=== PATIENT | female | born 1965 | race Caucasian/White ===

== ENCOUNTER → 2018-09-07 10:39 | Outpatient (CLI) | payer OTHER, SELFPAY ==
--- NOTE | 2018-09-07 | DI.MG.S_ITS ---
BILATERAL DIGITAL SCREENING MAMMOGRAM 3D/2D WITH CAD: 09/07/2018 CLINICAL: Routine screening. Comparison is made to exams dated: 09/05/2017 mammogram, 09/04/2016 mammogram, and 09/01/2015 mammogram - [facility]. The tissue of both breasts is heterogeneously dense. This may lower the sensitivity of mammography. Current study was also evaluated with a Computer Aided Detection (CAD) system. No significant masses, calcifications, or other findings are seen in either breast. There has been no significant interval change. IMPRESSION: NEGATIVE There is no mammographic evidence of malignancy. A 1 year screening mammogram is recommended. This exam was interpreted at Station ID: [id number]. NOTE: For mammograms, a report in lay terms will be sent to the patient. Approximately 15% of breast malignancies will not be visualized mammographically. In the management of a palpable breast mass, a negative mammogram must not discourage biopsy of a clinically suspicious lesion. Electronically Signed By: Fela esteban/christiana:09/07/2018 13:09:31 copy to: John Arreaga letter sent: Normal Exam ACR BI-RADS Category 1: Negative 3341F
== END ==
PROVIDERS: PCP Student in an Organized Health Care Education/Training Program
DX: Z12.31 Encounter for screening mammogram for malignant neoplasm of breast (principal)
CPT/HCPCS: 77063; 77067

== ENCOUNTER → 2019-01-02 12:34 | Outpatient (CLI) | payer OTHER, SELFPAY ==
--- NOTE | 2019-01-02 12:37 | DI.RAD.S_ITS ---
PROCEDURE: XR LUMBAR SPINE MIN 4V INDICATIONS: Eval TECHNIQUE: 3 views of the lumbar spine were acquired. COMPARISON: [facility], CT, ABDOMEN/PELVIS WITH CONTRAST, 02/21/2008, 10:27. FINDINGS: Bones: 5 nonrib-bearing vertebrae are present. There is mildly dextroscoliotic bony alignment centered at L2. No vertebral body compression fractures. No suspicious bony lesions. Soft tissues: Overlying bowel gas pattern is normal. No suspicious soft tissue calcifications, but note is made of a small radiodensity at the left margin of the upper third of L1 on a straight frontal projection, uncertain etiology but near the expected position of the medial border of the left kidney upper third. Oblique images: No pars defects. IMPRESSION: No trauma found, mild dextroscoliosis centered at L2, no significant degenerative change found. Dictated by: Jose Solorzano M.D. on 01/02/2019 at 13:10 Approved by: Jose Solorzano M.D. on 01/02/2019 at 13:12
== END ==
PROVIDERS: PCP Student in an Organized Health Care Education/Training Program; Visit Provider Physical Medicine & Rehabilitation
DX: M54.9 Dorsalgia, unspecified (principal); M41.86 Other forms of scoliosis, lumbar region
CPT/HCPCS: 72110

== ENCOUNTER → 2019-01-21 09:46 | Outpatient (CLI) | payer OTHER, SELFPAY ==
--- NOTE | 2019-01-21 09:46 | DI.MRI.S_ITS ---
PROCEDURE: MR LUMBAR SPINE WO CON INDICATIONS: Acute LBP with LE symptoms TECHNIQUE: Noncontrast sagittal T1 spin echo and T2 fast echo, sagittal STIR, axial T1 and T2 fast spin echo through the lumbar spine. In cases with scoliosis, additional coronal T2 fast spin echo may be performed. COMPARISON: [facility], CR, XR LUMBAR SPINE MIN 4V, 01/02/2019, 12:39. FINDINGS: Image quality: Excellent. Alignment and Curvature: 5 lumbar type vertebral bodies are present by plain film. There is normal bony alignment. Bone Marrow: Marrow is of normal overall signal. No acute vertebral body compression fractures. Spinal Cord: Conus medullaris terminates at the mid L2 level. Visualized cord demonstrates normal signal and size. Paraspinous Soft Tissues: No paravertebral masses. L1-L2: Mild disc desiccation. Mild diffuse disc bulge with superimposed left paracentral disc extrusion which extends inferiorly to the upper L2 level, and superiorly to the mid L1 level, measuring roughly 18 mm craniocaudal by 9 mm transverse by 4 mm central posterior. There is mild facet and ligamentum flavum hypertrophy. Moderate lipomatosis. Mild canal stenosis. The disc abuts the left L2 nerve root but does not appear to compress it, nor deviate it. No foraminal stenosis. L2-L3: Mild disc loss and desiccation. Mild diffuse disc bulge. Mild facet and ligamentum flavum hypertrophy. Mild epidural lipomatosis. Mild canal stenosis. Mild bilateral foraminal stenosis. L3-L4: Mild disc height loss and desiccation. Mild diffuse disc bulge. Mild facet and ligamentum flavum hypertrophy. Moderate lipomatosis. Moderate canal stenosis. Moderate subarticular foraminal stenosis. L4-L5: Mild disc desiccation and diffuse disc bulge. Mild facet and ligamentum hypertrophy. Mild canal stenosis. Moderate subarticular foraminal stenosis bilaterally. L5-S1: Mild bilateral facet hypertrophy. No significant canal stenosis. Moderate subarticular foraminal stenosis bilaterally. IMPRESSION: 1. Multilevel degenerative disc and facet disease, as well as ligament flavum hypertrophy and epidural lipomatosis. 2. Multilevel canal stenoses, worst at L3-L4, where there is moderate canal stenosis present. 3. L1-L2 disc extrusion which abuts the left L2 nerve root but does not appear to compress it, nor deviate it. Recommend correlation with clinical symptoms to ascertain relevance of this finding. Dictated by: Abdelrahman Lehman M.D. on 01/21/2019 at 10:58 Approved by: Abdelrahman Lehman M.D. on 01/21/2019 at 11:05
== END ==
PROVIDERS: PCP Student in an Organized Health Care Education/Training Program; Visit Provider Physical Medicine & Rehabilitation
DX: M51.16 Intervertebral disc disorders with radiculopathy, lumbar region (principal); S39.012A Strain of muscle, fascia and tendon of lower back, initial encounter; M48.061 Spinal stenosis, lumbar region without neurogenic claudication; M48.07 Spinal stenosis, lumbosacral region
CPT/HCPCS: 72148

== ENCOUNTER → 2019-05-08 10:06 | Outpatient (CLI) | payer OTHER, SELFPAY ==
[2019-05-08 10:12] LABS: Bacteria Urine None Seen; RBC Urine None Seen (0-5/HPF); WBC Urine None Seen (0-5/HPF)
[2019-05-08 10:39] LABS: Appearance Urine UA CLEAR; Bilirubin Urine UA NEGATIVE (NEGATIVE); Color Urine UA YELLOW; Glucose Urine UA NEGATIVE (Negative); Ketones Urine UA NEGATIVE (NEGATIVE); Leukocyte Esterase Urine UA NEGATIVE (NEGATIVE); Nitrite Urine UA NEGATIVE (Negative); Occult Blood Urine UA NEGATIVE (Negative); Protein Urine UA NEGATIVE (Negative); Specific Gravity Urine UA 1.015 (1.000-1.035); Urobilinogen Urine UA 0.2 E.U./dL (0.2)
[2019-05-08 11:20] LABS: Squamous Epithelial Cell Urine 0-1 /HPF (0-5/HPF)
[2019-05-08 13:44] LABS: Culture Indicated Urine Cult Not Indicated
== END ==
PROVIDERS: PCP Student in an Organized Health Care Education/Training Program
DX: R39.9 Unspecified symptoms and signs involving the genitourinary system (principal)
CPT/HCPCS: 81001

== ENCOUNTER → 2019-09-18 16:30 | Outpatient (CLI) | payer OTHER, SELFPAY ==
--- NOTE | 2019-09-18 | DI.MG.S_ITS ---
BILATERAL DIGITAL SCREENING MAMMOGRAM 3D/2D WITH CAD: 09/18/2019 CLINICAL: Routine screening. Comparison is made to exams dated: 09/07/2018 mammogram, 09/05/2017 mammogram, and 09/04/2016 mammogram - [facility]. The tissue of both breasts is heterogeneously dense. This may lower the sensitivity of mammography. Current study was also evaluated with a Computer Aided Detection (CAD) system. No significant masses, calcifications, or other findings are seen in either breast. There has been no significant interval change. IMPRESSION: NEGATIVE There is no mammographic evidence of malignancy. A 1 year screening mammogram is recommended. This exam was interpreted at Station ID: [id number]. NOTE: For mammograms, a report in lay terms will be sent to the patient. Approximately 15% of breast malignancies will not be visualized mammographically. In the management of a palpable breast mass, a negative mammogram must not discourage biopsy of a clinically suspicious lesion. Electronically Signed By: Seda donald/christiana:09/19/2019 10:47:08 copy to: John Arreaga letter sent: Normal Exam ACR BI-RADS Category 1: Negative 3341F
== END ==
PROVIDERS: Family Provider Student in an Organized Health Care Education/Training Program; PCP Student in an Organized Health Care Education/Training Program
DX: Z12.31 Encounter for screening mammogram for malignant neoplasm of breast (principal)
CPT/HCPCS: 77063; 77067

== ENCOUNTER → 2020-04-06 10:04 | Outpatient (CLI) | payer OTHER, SELFPAY | PROVIDERS: Family Provider Student in an Organized Health Care Education/Training Program; PCP Student in an Organized Health Care Education/Training Program | DX: Z13.820 Encounter for screening for osteoporosis (principal); Z78.0 Asymptomatic menopausal state; Z90.722 Acquired absence of ovaries, bilateral; Z91.89 Other specified personal risk factors, not elsewhere classified | CPT/HCPCS: 77080 ==

== ENCOUNTER → 2020-09-21 16:09 | Outpatient (CLI) | payer OTHER, SELFPAY ==
--- NOTE | 2020-09-21 | DI.MG.S_ITS ---
BILATERAL DIGITAL SCREENING MAMMOGRAM 3D/2D WITH CAD: 09/21/2020 CLINICAL: Routine screening. Comparison is made to exams dated: 09/18/2019 mammogram, 09/07/2018 mammogram, and 09/05/2017 mammogram - [facility]. The tissue of both breasts is heterogeneously dense. This may lower the sensitivity of mammography. Current study was also evaluated with a Computer Aided Detection (CAD) system. No significant masses, calcifications, or other findings are seen in either breast. There has been no significant interval change. IMPRESSION: NEGATIVE There is no mammographic evidence of malignancy. A 1 year screening mammogram is recommended. This exam was interpreted at Station ID: [id number]. NOTE: For mammograms, a report in lay terms will be sent to the patient. Approximately 15% of breast malignancies will not be visualized mammographically. In the management of a palpable breast mass, a negative mammogram must not discourage biopsy of a clinically suspicious lesion. Electronically Signed By: Fela esteban/christiana:09/28/2020 11:40:47 letter sent: Normal Exam ACR BI-RADS Category 1: Negative 3341F
== END ==
PROVIDERS: Family Provider Student in an Organized Health Care Education/Training Program; PCP Student in an Organized Health Care Education/Training Program; Referring Provider Obstetrics & Gynecology; Visit Provider Obstetrics & Gynecology
DX: Z12.31 Encounter for screening mammogram for malignant neoplasm of breast (principal)
CPT/HCPCS: 77063; 77067

== ENCOUNTER → 2020-12-18 08:08 | Outpatient (CLI) | payer OTHER, SELFPAY ==
[2020-12-18 08:52] LABS: Add Manual Diff / Slide Review NO; Basophils Absolute Auto 0 /uL (0-100); Basophils Percent Auto 0.7 % (0-2); Eosinophils Absolute Auto 100 /uL (0-450); Eosinophils Percent Auto 3.3 % (2-4); Hematocrit 37.2 % (36-46); Hemoglobin 12.5 g/dL (12.0-16.0); Lymphocytes Absolute Auto 1600 /uL (1100-4500); Lymphocytes Percent Auto 38.4 % (25-40); Mean Corpuscular HGB Conc 33.5 % (30-36); Mean Corpuscular Hemoglobin 33.2 PG (26-34); Mean Corpuscular Volume 99.1 fL (80-100); Monocytes Absolute Auto 400 /uL (0-900); Monocytes Percent Auto 10.1 % (3-14); Neutrophils Absolute Auto 2000 /uL (1500-7000); Neutrophils Percent Auto 47.5 % (50-75); Platelet Count 250 X10^3/uL (150-400); Red Blood Cell Count 3.76 X10^6/uL (4.0-5.2); Red Cell Distribution Width 12.5 % (11.6-14.8); White Blood Cell Count 4.2 X10^3/uL (4.5-11.0)
[2020-12-18 09:05] LABS: Alanine Aminotransferase 22 IU/L (<35); Albumin 3.7 g/dL (3.5-5.0); Albumin Globulin Ratio 1.3 (1.0-2.8); Alkaline Phosphatase 69 U/L (38-126); Aspartate Aminotransferase 26 IU/L (14-36); BUN Creatinine Ratio 14.5 (6-22); Bilirubin Total 0.4 mg/dL (0.2-1.3); Blood Urea Nitrogen 10 mg/dL (7-17); Carbon Dioxide 31 mmol/L (22-32); Chloride 104 mmol/L (98-107); Estimated Glomerular Filt Rate > 60.0 mL/min (>60); Globulin 2.9 g/dL (1.7-4.1); Glucose 96 mg/dL (70-100); HEMOLYSIS < 15 (0-50); Potassium 4.3 mmol/L (3.4-5.1); Sodium 137 mmol/L (137-145); Total Protein 6.6 g/dL (6.3-8.2)
[2020-12-18 09:22] LABS: Free T3, Triiodothyronine Free 3.38 pg/mL (2.77-5.27); Free T4, Direct Thyroxine 1.28 ng/dL (0.78-2.19)
[2020-12-18 09:36] LABS: Thyroid Stimulating Hormone 0.254 uIU/mL (0.47-4.68)
[2020-12-18 09:55] LABS: Vitamin B12 484 pg/mL (239-931)
== END ==
PROVIDERS: Family Provider Student in an Organized Health Care Education/Training Program; PCP Student in an Organized Health Care Education/Training Program; Referring Provider Student in an Organized Health Care Education/Training Program; Visit Provider Student in an Organized Health Care Education/Training Program
DX: R53.83 Other fatigue (principal); E03.9 Hypothyroidism, unspecified
CPT/HCPCS: 36415; 80053; 82607; 84439; 84443; 84481; 85025

== ENCOUNTER → 2021-01-13 09:04 | Outpatient (CLI) | payer OTHER, SELFPAY ==
[2021-01-13] MEDS: COVID-19 VACC #1, MRNA(MOD) 100 MCG/0.5 ML VIAL IM (09:13)
== END ==
PROVIDERS: Family Provider Student in an Organized Health Care Education/Training Program; PCP Student in an Organized Health Care Education/Training Program; Visit Provider Internal Medicine
DX: Z23 Encounter for immunization (principal)
CPT/HCPCS: 0011A; 91301

== ENCOUNTER → 2021-02-10 09:08 | Outpatient (CLI) | payer OTHER, SELFPAY ==
[2021-02-10] MEDS: COVID-19 VACC #2, MRNA(MOD) 100 MCG/0.5 ML VIAL IM (09:17)
== END ==
PROVIDERS: PCP Student in an Organized Health Care Education/Training Program; Visit Provider Internal Medicine
DX: Z23 Encounter for immunization (principal)
CPT/HCPCS: 0012A; 91301

== ENCOUNTER → 2021-09-26 12:09 | Outpatient (CLI) | payer OTHER, SELFPAY ==
--- NOTE | 2021-09-26 12:10 | DI.MG.S_ITS ---
BILATERAL DIGITAL SCREENING MAMMOGRAM 3D/2D WITH CAD: 09/26/2021 CLINICAL: Routine screening. Comparison is made to exams dated: 09/21/2020 mammogram, 09/18/2019 mammogram, and 09/07/2018 mammogram - [facility]. The tissue of both breasts is heterogeneously dense. This may lower the sensitivity of mammography. Current study was also evaluated with a Computer Aided Detection (CAD) system. No significant masses, calcifications, or other findings are seen in either breast. There has been no significant interval change. IMPRESSION: NEGATIVE There is no mammographic evidence of malignancy. A 1 year screening mammogram is recommended. This exam was interpreted at Station ID: [id number]. NOTE: For mammograms, a report in lay terms will be sent to the patient. Approximately 15% of breast malignancies will not be visualized mammographically. In the management of a palpable breast mass, a negative mammogram must not discourage biopsy of a clinically suspicious lesion. Electronically Signed By: Pancho hammond/christiana:09/26/2021 14:31:32 copy to: VICKI WILSON letter sent: Normal Exam ACR BI-RADS Category 1: Negative 3341F
== END ==
PROVIDERS: PCP Student in an Organized Health Care Education/Training Program; Referring Provider Obstetrics & Gynecology; Visit Provider Obstetrics & Gynecology
DX: Z12.31 Encounter for screening mammogram for malignant neoplasm of breast (principal)
CPT/HCPCS: 77063; 77067

== ENCOUNTER → 2021-11-17 07:14 | Outpatient (CLI) | payer OTHER, SELFPAY ==
[2021-11-17 08:56] LABS: BUN Creatinine Ratio 21.1 (6-22); Blood Urea Nitrogen 16 mg/dL (7-17); Calcium 9.2 mg/dL (8.4-10.2); Carbon Dioxide 31 mmol/L (22-32); Chloride 104 mmol/L (98-107); Estimated Glomerular Filt Rate > 60.0 mL/min (>60); Glucose 94 mg/dL (70-100); HEMOLYSIS < 15 (0-50); Potassium 4.8 mmol/L (3.4-5.1); Sodium 139 mmol/L (137-145)
[2021-11-17 09:21] LABS: TSH w/ Reflex to FT4 0.89 uIU/mL (0.47-4.68)
== END ==
PROVIDERS: PCP Student in an Organized Health Care Education/Training Program; Referring Provider Student in an Organized Health Care Education/Training Program; Visit Provider Student in an Organized Health Care Education/Training Program
DX: E03.9 Hypothyroidism, unspecified (principal); Z79.899 Other long term (current) drug therapy
CPT/HCPCS: 36415; 80048; 84443

== ENCOUNTER 2022-02-28 09:45 | Outpatient (RCR) | payer OTHER, SELFPAY ==
--- NOTE | 2021-11-21 14:51 | PT.OIE ---
Current Diagnoses Cervicogenic headache (11/21/21) Past Medical History (Last Reviewed 08/09/21 @ 12:54 by Adarsh Preciado MD) Acute lumbar myofascial strain Anemia History of colonoscopy (~2007) Hypothyroidism Ulcerative colitis (~2010) Past Surgical History (Last Reviewed 08/09/21 @ 12:54 by Adarsh Preciado MD) History of bilateral salpingo-oophorectomy (BSO) History of colonoscopy (~2007) Status post hysterectomy Visit Care Team Role Provider Type Brennon Pike MD Attending Provider Physician Family Provider Primary Care Provider Referring Provider Specialty: Internal Medicine Address: [address] [place] [address], [facility] [address], [place], [facility] Email: [email or web address] Physical Therapy Initial Evaluation PT-OP-A Visit Information Start: 11/18/21 10:51 Freq: Status: Active Protocol: Document 11/21/21 13:48 MB (Rec: 11/21/21 13:50 MB [id number]) Out-Patient Physical Therapy Visit Information Visit Information Visit Type Initial Evaluation Visit Note [facility], Self- Pay Visit Start Time 13:48 Visit Stop Time 14:30 Total Visit Minutes 42 Visit Number 1 Evaluation Information Evaluation Date 11/21/21 PT-OP-B Current Condition Start: 11/18/21 10:51 Freq: Status: Active Protocol: Document 11/21/21 13:48 MB (Rec: 11/21/21 14:05 MB [id number]) Current Condition History of Current Condition Onset Date [age] years Current Complaints Posterior headache pain History of Current Condition Pt states that she has had headaches since her teens. She was told they were migraines when she had her hysterectomy at age 28 years. The headaches did not get better after that . Pt states that her headaches go in cycles. When she gets them, she gets them constantly and then they stop. She does exercise at [employer]. She walks and runs. She changed her diet and she cut out flour. She tried cutting out caffeine and it did not make a change. She went to [facility] for pelvic floor therapy. The therapist did something for her neck and she got relief. Her PT encouraged her to return to her PCP and she got the referral to this clinic. Pt reports 8-9/10 posterior head and neck pain and 7/10 shoulder and 6/10 intrascapular pain. Pt reports that she gets light and noise sensitivity with headaches. She gets dizzy and nauseated. She has some migraine medicines that she takes when she can but she only gets so many. When she can go to bed, that makes a difference. She has tried ice packs. Pt has a BiPap and the doctor says her sleep is good. She tries to go to bed between 10- 1030 and wakes up about 0630. She has a puppy and now her sleeping schedule is off. Pt works part-time and she does retail. Pt starts out on her stomach and winds up on her back. She uses her BiPap in this position. Her mattress is firm. Pt goes to massage once a month. She wishes she could live there. She drinks a lot of water. She drinks 66 oz a day. She drinks 1.5 cup of caffeinated coffee in the morning and 1 cup of coffee in the afternoon. Right now, she is drinking 3 cups with the dog. Pt reports that occ, her eyes feel pressurized and she feels she is strangly. Pt states that her back pain is doing fine. PT-OP-C Subjective Start: 11/18/21 10:51 Freq: Status: Active Protocol: Document 11/21/21 13:48 MB (Rec: 11/21/21 13:50 MB [id number]) OP-PT Subjective Patient Comments Patient Comments See history of current condition PT-OP-J Posture/Palpation/Skin Start: 11/18/21 10:51 Freq: Status: Active Protocol: Document 11/21/21 13:48 MB (Rec: 11/21/21 14:51 MB [id number]) Posture Evaluation Comments Posture Comments Standing posture without shoes : left AC joint is 1 in front of left tragus, left shoulder is about 1 higher than the left and pt is left hand dominant. Mild Dowager's hump and decreased normal curvature of spine at all levels with very flat thoracic spine, right iliac crest higher than the left, B knee valgus and some foot changes PT-OP-K Range of Motion Start: 11/18/21 10:51 Freq: Status: Active Protocol: Document 11/21/21 13:48 MB (Rec: 11/21/21 14:51 MB [id number]) Cervical Spine Range of Motion Cervical Spine Active Testing Position Standing Flexion 20 Extension 23 Rotation Left 40 Rotation Right 50 Lateral Flexion Left 25 Lateral Flexion Right 30 Shoulder Goniometric Range of Motion Shoulder Bilateral Shoulder ROM WFL Yes Testing Position Standing PT-OP-M Strength Start: 11/18/21 10:51 Freq: Status: Active Protocol: Document 11/21/21 13:48 MB (Rec: 11/21/21 14:51 MB [id number]) Shoulder Strength Shoulder Manual Muscle Testing Bilateral Flexion 5 Normal Abduction (C5) 5 Normal Elbow/Forearm Strength Elbow and Forearm Manual Muscle Testing Bilateral Flexion (C6) 5 Normal PT-OP-Q Treatments Start: 11/18/21 10:51 Freq: Status: Active Protocol: Document 11/21/21 13:48 MB (Rec: 11/21/21 14:42 MB [id number]) Self-Care/Home Management Treatment Education Patient Education Body Mechanics,Joint Protection,Pain Management, Posture Other Education Provided sleeping hygiene and headache self-care handouts for pt, ed pt in proper sleeping position for neck support and log roll technique , other education included hydration, etc PT-OP-T Assessment and Plan Start: 11/18/21 10:51 Freq: Status: Active Protocol: Document 11/21/21 13:48 MB (Rec: 11/21/21 14:51 MB [id number]) Physical Therapy Assessment Rehab Potential Rehabilitation Potential Good Evaluation Complexity Number of Personal Factors/Comorbidities 3 or More Number of Body Systems Impaired 1-2 Clinical Presentation at Evaluation Evolving Impairments Impairments Pain,Posture,ROM,Soft Tissue Mobility Other Impairments Personal factors include long history of headaches, pelvic floor dysfunction and back pain. She is a stomach sleeper and just got a puppy and so sleeping position and schedule is off. Body systems affected include musculoskeletal and neuromuscular. Her clinical presentation is evolving. Goals 2 User Experience Analyst Goal (LTG) Pt will perform progressive HEP with I including pelvic realignment, breathing, self- massage, postural, and strengthening exercises to improve cervical ROM and pain by 01/19/22. LTG Duration 8 weeks 1 User Experience Analyst Goal (LTG) Pt will report a 75% improvement in headaches and headache pain to improve quality of life by 01/19/22. LTG Duration 8 weeks Assessment Summary Assessment Pt is a 56 y/o female presenting with long history of headaches. She presents with limited cervical ROM, poor sleeping positioning, increased use of caffeine and poorer sleeping habits d/t having a new puppy and postural changes. Initiated headache self-care education today. She will benefit from PT for ongoing assessment of posture including workstation and car set-up, breathing, pelvic realignment, self- massage, postural training and strengthening and manual work . Physical Therapy Plan Frequency and Duration Frequency of Treatment 2x/Week Duration of Treatment 8 weeks Plan of Care Start Date 11/21/21 Plan of Care End Date 01/19/22 Therapeutic Interventions Therapeutic Interventions Home Exercise Program,Joint Mobilizations,Manual Therapy, Neuromuscular Re-education, Patient/Caregiver Education, Self-Care/Home Management,Soft Tissue Mobilization,Taping, Therapeutic Activities, Therapeutic Exercises Modalities Cold Pack/Ice Massage,Hot Packs Next Visit Focus/Plan Next Note Type Treatment Note Next Visit Plan Pelvic realignment exercises and initiate racquet ball massage
--- NOTE | 2021-11-21 14:51 | PT.OPPOC ---
Physical, Occupational & Speech Therapy At [facility] Current Diagnoses Cervicogenic headache (11/21/21) Visit Care Team Role Provider Type Brennon Pike MD Attending Provider Physician Family Provider Primary Care Provider Referring Provider Specialty: Internal Medicine Address: [address] [place] [address], [address], [place], [address] Email: [email or web address] Plan Of Care PT-OP-T Assessment and Plan Start: 11/18/21 10:51 Freq: Status: Active Protocol: Document 11/21/21 13:48 MB (Rec: 11/21/21 14:51 MB [id number]) Physical Therapy Assessment Rehab Potential Rehabilitation Potential Good Evaluation Complexity Number of Personal Factors/Comorbidities 3 or More Number of Body Systems Impaired 1-2 Clinical Presentation at Evaluation Evolving Impairments Impairments Pain,Posture,ROM,Soft Tissue Mobility Other Impairments Personal factors include long history of headaches, pelvic floor dysfunction and back pain. She is a stomach sleeper and just got a puppy and so sleeping position and schedule is off. Body systems affected include musculoskeletal and neuromuscular. Her clinical presentation is evolving. Goals 2 Escrow Assistant Goal (LTG) Pt will perform progressive HEP with I including pelvic realignment, breathing, self- massage, postural, and strengthening exercises to improve cervical ROM and pain by 01/19/22. LTG Duration 8 weeks 1 Detention Goal (LTG) Pt will report a 75% improvement in headaches and headache pain to improve quality of life by 01/19/22. LTG Duration 8 weeks Assessment Summary Assessment Pt is a 56 y/o female presenting with long history of headaches. She presents with limited cervical ROM, poor sleeping positioning, increased use of caffeine and poorer sleeping habits d/t having a new puppy and postural changes. Initiated headache self-care education today. She will benefit from PT for ongoing assessment of posture including workstation and car set-up, breathing, pelvic realignment, self- massage, postural training and strengthening and manual work . Physical Therapy Plan Frequency and Duration Frequency of Treatment 2x/Week Duration of Treatment 8 weeks Plan of Care Start Date 11/21/21 Plan of Care End Date 01/19/22 Therapeutic Interventions Therapeutic Interventions Home Exercise Program,Joint Mobilizations,Manual Therapy, Neuromuscular Re-education, Patient/Caregiver Education, Self-Care/Home Management,Soft Tissue Mobilization,Taping, Therapeutic Activities, Therapeutic Exercises Modalities Cold Pack/Ice Massage,Hot Packs Next Visit Focus/Plan Next Note Type Treatment Note Next Visit Plan Pelvic realignment exercises and initiate racquet ball massage Plan of Care Dates Plan of Care Start Date 11/21/21 Plan of Care End Date 01/19/22 Electronically Signed by: Mara Morton, PT 11/21/21 [id number] Please Sign and Return: I have reviewed this Plan of Care and certify that the skilled therapy services above are required to meet the patient?s needs. Physician Signature Date Printed Name and Credentials Clinical Instructor Signature Printed Name and Credentials
--- NOTE | 2021-11-25 08:08 | PT.OTN ---
Current Diagnoses Cervicogenic headache (11/25/21) Physical Therapy Treatment Note PT-OP-A Visit Information Start: 11/18/21 10:51 Freq: Status: Active Protocol: Document 11/25/21 07:30 MB (Rec: 11/25/21 08:05 MB [id number]) Out-Patient Physical Therapy Visit Information Visit Information Visit Type Treatment Note Visit Note [facility], self- pay Visit Start Time 07:30 Visit Stop Time 08:08 Total Visit Minutes 38 Visit Number 2 Evaluation Information Evaluation Date 11/21/21 PT-OP-B Current Condition Start: 11/18/21 10:51 Freq: Status: Active Protocol: Document 11/21/21 13:48 MB (Rec: 11/21/21 14:05 MB [id number]) Current Condition History of Current Condition Onset Date [age] years Current Complaints Posterior headache pain History of Current Condition Pt states that she has had headaches since her teens. She was told they were migraines when she had her hysterectomy at age 28 years. The headaches did not get better after that . Pt states that her headaches go in cycles. When she gets them, she gets them constantly and then they stop. She does exercise at [employer]. She walks and runs. She changed her diet and she cut out flour. She tried cutting out caffeine and it did not make a change. She went to [facility] for pelvic floor therapy. The therapist did something for her neck and she got relief. Her PT encouraged her to return to her PCP and she got the referral to this clinic. Pt reports 8-9/10 posterior head and neck pain and 7/10 shoulder and 6/10 intrascapular pain. Pt reports that she gets light and noise sensitivity with headaches. She gets dizzy and nauseated. She has some migraine medicines that she takes when she can but she only gets so many. When she can go to bed, that makes a difference. She has tried ice packs. Pt has a BiPap and the doctor says her sleep is good. She tries to go to bed between 10- 1030 and wakes up about 0630. She has a puppy and now her sleeping schedule is off. Pt works part-time and she does retail. Pt starts out on her stomach and winds up on her back. She uses her BiPap in this position. Her mattress is firm. Pt goes to massage once a month. She wishes she could live there. She drinks a lot of water. She drinks 66 oz a day. She drinks 1.5 cup of caffeinated coffee in the morning and 1 cup of coffee in the afternoon. Right now, she is drinking 3 cups with the dog. Pt reports that occ, her eyes feel pressurized and she feels she is strangly. Pt states that her back pain is doing fine. PT-OP-C Subjective Start: 11/18/21 10:51 Freq: Status: Active Protocol: Document 11/25/21 07:30 MB (Rec: 11/25/21 08:05 MB [id number]) OP-PT Subjective Patient Comments Patient Comments Pt brings in a racquet ball. She is taking magnesium at night time. She doesn't have any questions from the evaluation. PT-OP-J Posture/Palpation/Skin Start: 11/18/21 10:51 Freq: Status: Active Protocol: Document 11/21/21 13:48 MB (Rec: 11/21/21 14:51 MB [id number]) Posture Evaluation Comments Posture Comments Standing posture without shoes : left AC joint is 1 in front of left tragus, left shoulder is about 1 higher than the left and pt is left hand dominant. Mild Dowager's hump and decreased normal curvature of spine at all levels with very flat thoracic spine, right iliac crest higher than the left, B knee valgus and some foot changes PT-OP-K Range of Motion Start: 11/18/21 10:51 Freq: Status: Active Protocol: Document 11/21/21 13:48 MB (Rec: 11/21/21 14:51 MB [id number]) Cervical Spine Range of Motion Cervical Spine Active Testing Position Standing Flexion 20 Extension 23 Rotation Left 40 Rotation Right 50 Lateral Flexion Left 25 Lateral Flexion Right 30 Shoulder Goniometric Range of Motion Shoulder Bilateral Shoulder ROM WFL Yes Testing Position Standing PT-OP-M Strength Start: 11/18/21 10:51 Freq: Status: Active Protocol: Document 11/21/21 13:48 MB (Rec: 11/21/21 14:51 MB [id number]) Shoulder Strength Shoulder Manual Muscle Testing Bilateral Flexion 5 Normal Abduction (C5) 5 Normal Elbow/Forearm Strength Elbow and Forearm Manual Muscle Testing Bilateral Flexion (C6) 5 Normal PT-OP-Q Treatments Start: 11/18/21 10:51 Freq: Status: Active Protocol: Document 11/25/21 07:30 MB (Rec: 11/25/21 08:05 MB [id number]) Therapeutic Exercises Supine Exercises Log rolling technique Comments Encouraged today to protect neck Pelvic realignment exercises Side bilateral Comments 5 reps, 3 sec hold all exercises Standing Exercises Kids ball thoracic mobility Comments Ball at spine against the wall and arms out Posture at the wall Comments Scapular retraction and gentle chin tuck Racquet ball massage Comments Intrascapular muscle STM today , pulsating into the wall and TrP hold PT-OP-T Assessment and Plan Start: 11/18/21 10:51 Freq: Status: Active Protocol: Document 11/25/21 07:30 MB (Rec: 11/25/21 08:05 MB [id number]) Physical Therapy Assessment Rehab Potential Rehabilitation Potential Good Evaluation Complexity Number of Personal Factors/Comorbidities 3 or More Number of Body Systems Impaired 1-2 Clinical Presentation at Evaluation Evolving Impairments Impairments Pain,Posture,ROM,Soft Tissue Mobility Other Impairments Personal factors include long history of headaches, pelvic floor dysfunction and back pain. She is a stomach sleeper and just got a puppy and so sleeping position and schedule is off. Body systems affected include musculoskeletal and neuromuscular. Her clinical presentation is evolving. Goals 2 Hospital Secretary Goal (LTG) Pt will perform progressive HEP with I including pelvic realignment, breathing, self- massage, postural, and strengthening exercises to improve cervical ROM and pain by 01/19/22. LTG Duration 8 weeks 1 Shelter Goal (LTG) Pt will report a 75% improvement in headaches and headache pain to improve quality of life by 01/19/22. LTG Duration 8 weeks Assessment Summary Assessment Initiated postural education today, use of racquet ball and pelvic realignment exercises to help with obliquity and fascial tension. Pt responds well initially. Con't per plan below. Physical Therapy Plan Frequency and Duration Frequency of Treatment 2x/Week Duration of Treatment 8 weeks Plan of Care Start Date 11/21/21 Plan of Care End Date 01/19/22 Therapeutic Interventions Therapeutic Interventions Home Exercise Program,Joint Mobilizations,Manual Therapy, Neuromuscular Re-education, Patient/Caregiver Education, Self-Care/Home Management,Soft Tissue Mobilization,Taping, Therapeutic Activities, Therapeutic Exercises Modalities Cold Pack/Ice Massage,Hot Packs Next Visit Focus/Plan Next Note Type Treatment Note Next Visit Plan Review pelvic realignment exercises and racquet ball and start manual work, consider infra massage and upper traps STM with ball or teasel setter, diaphragm breathing (nasal only) In future treatments: open book, consider standing cervical rotation with end- range nods, eventually arm bike and intrascapular and ER strengthening, pect stretch over pool noodle/roller
--- NOTE | 2021-11-29 18:22 | PT.OTN ---
Current Diagnoses Cervicogenic headache (11/29/21) Physical Therapy Treatment Note PT-OP-A Visit Information Start: 11/18/21 10:51 Freq: Status: Active Protocol: Document 11/29/21 18:14 [facility] (Rec: 11/29/21 18:22 [facility] [id number]) Out-Patient Physical Therapy Visit Information Visit Information Visit Type Treatment Note Visit Start Time 10:32 Visit Stop Time 11:15 Total Visit Minutes 43 Visit Number 3 Number of PRODUCTION TECHNICIAN Visits 0 PT-OP-B Current Condition Start: 11/18/21 10:51 Freq: Status: Active Protocol: Document 11/21/21 13:48 MB (Rec: 11/21/21 14:05 MB [id number]) Current Condition History of Current Condition Onset Date [age] years Current Complaints Posterior headache pain History of Current Condition Pt states that she has had headaches since her teens. She was told they were migraines when she had her hysterectomy at age 28 years. The headaches did not get better after that . Pt states that her headaches go in cycles. When she gets them, she gets them constantly and then they stop. She does exercise at [employer]. She walks and runs. She changed her diet and she cut out flour. She tried cutting out caffeine and it did not make a change. She went to [facility] for pelvic floor therapy. The therapist did something for her neck and she got relief. Her PT encouraged her to return to her PCP and she got the referral to this clinic. Pt reports 8-9/10 posterior head and neck pain and 7/10 shoulder and 6/10 intrascapular pain. Pt reports that she gets light and noise sensitivity with headaches. She gets dizzy and nauseated. She has some migraine medicines that she takes when she can but she only gets so many. When she can go to bed, that makes a difference. She has tried ice packs. Pt has a BiPap and the doctor says her sleep is good. She tries to go to bed between 10- 1030 and wakes up about 0630. She has a puppy and now her sleeping schedule is off. Pt works part-time and she does retail. Pt starts out on her stomach and winds up on her back. She uses her BiPap in this position. Her mattress is firm. Pt goes to massage once a month. She wishes she could live there. She drinks a lot of water. She drinks 66 oz a day. She drinks 1.5 cup of caffeinated coffee in the morning and 1 cup of coffee in the afternoon. Right now, she is drinking 3 cups with the dog. Pt reports that occ, her eyes feel pressurized and she feels she is strangly. Pt states that her back pain is doing fine. PT-OP-C Subjective Start: 11/18/21 10:51 Freq: Status: Active Protocol: Document 11/29/21 18:14 [facility] (Rec: 11/29/21 18:22 [facility] [id number]) OP-PT Subjective Patient Comments Patient Comments Pt reports using rachet ball has inc her migranes. She wakes up w/pain and tends to sleep on her belly PT-OP-J Posture/Palpation/Skin Start: 11/18/21 10:51 Freq: Status: Active Protocol: Document 11/21/21 13:48 MB (Rec: 11/21/21 14:51 MB [id number]) Posture Evaluation Comments Posture Comments Standing posture without shoes : left AC joint is 1 in front of left tragus, left shoulder is about 1 higher than the left and pt is left hand dominant. Mild Dowager's hump and decreased normal curvature of spine at all levels with very flat thoracic spine, right iliac crest higher than the left, B knee valgus and some foot changes PT-OP-K Range of Motion Start: 11/18/21 10:51 Freq: Status: Active Protocol: Document 11/21/21 13:48 MB (Rec: 11/21/21 14:51 MB [id number]) Cervical Spine Range of Motion Cervical Spine Active Testing Position Standing Flexion 20 Extension 23 Rotation Left 40 Rotation Right 50 Lateral Flexion Left 25 Lateral Flexion Right 30 Shoulder Goniometric Range of Motion Shoulder Bilateral Shoulder ROM WFL Yes Testing Position Standing PT-OP-M Strength Start: 11/18/21 10:51 Freq: Status: Active Protocol: Document 11/21/21 13:48 MB (Rec: 11/21/21 14:51 MB [id number]) Shoulder Strength Shoulder Manual Muscle Testing Bilateral Flexion 5 Normal Abduction (C5) 5 Normal Elbow/Forearm Strength Elbow and Forearm Manual Muscle Testing Bilateral Flexion (C6) 5 Normal PT-OP-Q Treatments Start: 11/18/21 10:51 Freq: Status: Active Protocol: Document 11/29/21 18:14 [facility] (Rec: 11/29/21 18:22 [facility] [id number]) Therapeutic Activity Therapeutic Activity sleep position Comments supine edu w/pillow placement & adjusting pt into position then prone prop position Manual Therapy Treatment Soft Tissue Mobilization cervical Body Location L>R UT, LS, scalenes, CT junction along spinous processes Mobilization Type Rolling,Sustained Pressure Intensity/Depth Moderate Body Position Supine Self-Care/Home Management Treatment Education Other Education discussed avoiding exercises that cause pain and verbal review w/exercises. discussed always point of exercises is not to inc pain. Discussed w/ pt to check w/pelvic health PT if she is okay w/pt doing pelvic realignment exercises, edu for ice or heat for help w /relief and for pt to choose what feels best for her PT-OP-T Assessment and Plan Start: 11/18/21 10:51 Freq: Status: Active Protocol: Document 11/29/21 18:14 [facility] (Rec: 11/29/21 18:22 [facility] [id number]) Physical Therapy Assessment Goals 2 Turf Farmer Goal (LTG) Pt will perform progressive HEP with I including pelvic realignment, breathing, self- massage, postural, and strengthening exercises to improve cervical ROM and pain by 01/19/22. LTG Duration 8 weeks 1 Turf Farmer Goal (LTG) Pt will report a 75% improvement in headaches and headache pain to improve quality of life by 01/19/22. LTG Duration 8 weeks Assessment Summary Assessment Pt felt much more comfortable in the position that PT placed her in for supine and felt like h could sleep in that position w/prop of pillows under knees. She was also understanding and able to get comfortable in partial prone prop positioning. DC'd racquet ball for home d/t inc of pain . Pt had improved cervical rotation w/manual but is limited at end ranges and appears to have limit in upper tspine. Physical Therapy Plan Frequency and Duration Frequency of Treatment 2x/Week Duration of Treatment 8 weeks Plan of Care Start Date 11/21/21 Plan of Care End Date 01/19/22 Next Visit Focus/Plan Next Note Type Treatment Note Next Visit Plan review chin tuck & scap retraction, work on upper thoracic mobility, work on cervical soft tissue mobility & try gentle wall roll up
--- NOTE | 2021-12-02 15:34 | PT.OTN ---
Current Diagnoses Cervicogenic headache (12/02/21) Physical Therapy Treatment Note PT-OP-A Visit Information Start: 11/18/21 10:51 Freq: Status: Active Protocol: Document 12/02/21 14:34 SP (Rec: 12/02/21 15:53 SP [id number]) Out-Patient Physical Therapy Visit Information Visit Information Visit Type Treatment Note Visit Start Time 14:34 Visit Stop Time 15:34 Total Visit Minutes 60 Visit Number 4 Number of FARM EQUIPMENT ENGINE MECHANIC Visits 1 Evaluation Information Evaluation Date 11/21/21 PT-OP-B Current Condition Start: 11/18/21 10:51 Freq: Status: Active Protocol: Document 11/21/21 13:48 MB (Rec: 11/21/21 14:05 MB [id number]) Current Condition History of Current Condition Onset Date [age] years Current Complaints Posterior headache pain History of Current Condition Pt states that she has had headaches since her teens. She was told they were migraines when she had her hysterectomy at age 28 years. The headaches did not get better after that . Pt states that her headaches go in cycles. When she gets them, she gets them constantly and then they stop. She does exercise at [employer]. She walks and runs. She changed her diet and she cut out flour. She tried cutting out caffeine and it did not make a change. She went to [facility] for pelvic floor therapy. The therapist did something for her neck and she got relief. Her PT encouraged her to return to her PCP and she got the referral to this clinic. Pt reports 8-9/10 posterior head and neck pain and 7/10 shoulder and 6/10 intrascapular pain. Pt reports that she gets light and noise sensitivity with headaches. She gets dizzy and nauseated. She has some migraine medicines that she takes when she can but she only gets so many. When she can go to bed, that makes a difference. She has tried ice packs. Pt has a BiPap and the doctor says her sleep is good. She tries to go to bed between 10- 1030 and wakes up about 0630. She has a puppy and now her sleeping schedule is off. Pt works part-time and she does retail. Pt starts out on her stomach and winds up on her back. She uses her BiPap in this position. Her mattress is firm. Pt goes to massage once a month. She wishes she could live there. She drinks a lot of water. She drinks 66 oz a day. She drinks 1.5 cup of caffeinated coffee in the morning and 1 cup of coffee in the afternoon. Right now, she is drinking 3 cups with the dog. Pt reports that occ, her eyes feel pressurized and she feels she is strangly. Pt states that her back pain is doing fine. PT-OP-C Subjective Start: 11/18/21 10:51 Freq: Status: Active Protocol: Document 12/02/21 14:34 SP (Rec: 12/02/21 15:53 SP [id number]) OP-PT Subjective Patient Comments Patient Comments Pt reported had some relief after last appt approx 5 hrs not needing to take medication but still there. Pt states trying to sleep PT-OP-J Posture/Palpation/Skin Start: 11/18/21 10:51 Freq: Status: Active Protocol: Document 11/21/21 13:48 MB (Rec: 11/21/21 14:51 MB [id number]) Posture Evaluation Comments Posture Comments Standing posture without shoes : left AC joint is 1 in front of left tragus, left shoulder is about 1 higher than the left and pt is left hand dominant. Mild Dowager's hump and decreased normal curvature of spine at all levels with very flat thoracic spine, right iliac crest higher than the left, B knee valgus and some foot changes PT-OP-K Range of Motion Start: 11/18/21 10:51 Freq: Status: Active Protocol: Document 11/21/21 13:48 MB (Rec: 11/21/21 14:51 MB [id number]) Cervical Spine Range of Motion Cervical Spine Active Testing Position Standing Flexion 20 Extension 23 Rotation Left 40 Rotation Right 50 Lateral Flexion Left 25 Lateral Flexion Right 30 Shoulder Goniometric Range of Motion Shoulder Bilateral Shoulder ROM WFL Yes Testing Position Standing PT-OP-M Strength Start: 11/18/21 10:51 Freq: Status: Active Protocol: Document 11/21/21 13:48 MB (Rec: 11/21/21 14:51 MB [id number]) Shoulder Strength Shoulder Manual Muscle Testing Bilateral Flexion 5 Normal Abduction (C5) 5 Normal Elbow/Forearm Strength Elbow and Forearm Manual Muscle Testing Bilateral Flexion (C6) 5 Normal PT-OP-Q Treatments Start: 11/18/21 10:51 Freq: Status: Active Protocol: Document 12/02/21 14:34 SP (Rec: 12/02/21 15:53 SP [id number]) Therapeutic Exercises Supine Exercises supine chin tuck Supine Exercise Name hooklying arms relaxed at side Reps/Minutes 5 sec hold x5 Log rolling technique Comments good performance Pelvic realignment exercises Supine Exercise Name discussed does with core physio exercises- feels confident doing Side bilateral Comments 5 reps, 3 sec hold all exercises Standing Exercises theracane Standing Exercise Name UT, suboccipitals Side bilateral Reps/Minutes 2 min Comments MWM head nod/ turns Kids ball thoracic mobility Standing Exercise Name discussed not performed Comments Ball at spine against the wall and arms out Posture at the wall Standing Exercise Name wall roll ups, added shld ER then extend arm to side Comments cued TA, scap depression, post head on wall Racquet ball massage Standing Exercise Name Intrascapular muscle STM today , pulsating into the wall and TrP hold Side bilateral Resistance reviewed HEP Equipment Used racquetball Reps/Minutes 2 min Comments good feedback response- pain free Manual Therapy Treatment Soft Tissue Mobilization cervical Body Location L>R UT, SCM, LS, SOR, BREEDER SERVICE TECHNICIAN Mobilization Type Rolling,Sustained Pressure Intensity/Depth Moderate Body Position Supine Comments manual, instruction on self STMs use of theracane had nods / turns and racquetball on wall UT and interscap Bilateral- good releases feedack- much better than on floor was doing before. Self-Care/Home Management Treatment Education Patient Education Body Mechanics,Home Exercise Program,Pain Management, Posture Other Education Initiated self STMs pincer knead SCM, ball wall post/ inter scap/ theracane posterior neck MWM / open book with good feedback. Extra time spent education on anatomy and postural awareness with better understanding decrease tightness and hope decrease tension on head and reduction in headaches. PT-OP-T Assessment and Plan Start: 11/18/21 10:51 Freq: Status: Active Protocol: Document 12/02/21 14:34 SP (Rec: 12/02/21 15:53 SP [id number]) Physical Therapy Assessment Goals 2 Cushion Mat Maker Goal (LTG) Pt will perform progressive HEP with I including pelvic realignment, breathing, self- massage, postural, and strengthening exercises to improve cervical ROM and pain by 01/19/22. LTG Duration 8 weeks 1 Prison Goal (LTG) Pt will report a 75% improvement in headaches and headache pain to improve quality of life by 01/19/22. LTG Duration 8 weeks Assessment Summary Assessment Pt responded well to manual and instruction on self application HEP with ball wall and theracane will get back from daughter. Initiated open book for TS rotational mobility, good feedback responses I feel am able to move better. Found wall roll up challenging but after extra time able to perform with shld ER into ext at wall for self postural awareness. Physical Therapy Plan Frequency and Duration Frequency of Treatment 2x/Week Duration of Treatment 8 weeks Plan of Care Start Date 11/21/21 Plan of Care End Date 01/19/22 Therapeutic Interventions Therapeutic Interventions Home Exercise Program,Joint Mobilizations,Manual Therapy, Neuromuscular Re-education, Patient/Caregiver Education, Self-Care/Home Management,Soft Tissue Mobilization,Taping, Therapeutic Activities, Therapeutic Exercises Modalities Cold Pack/Ice Massage,Hot Packs Next Visit Focus/Plan Next Note Type Treatment Note Next Visit Plan Review CS and TS alignment, upper thoracic mobility, recheck self cervical soft tissue mobility, review gentle wall roll up initiated last tx.
--- NOTE | 2021-12-06 13:45 | PT.OTN ---
Current Diagnoses Cervicogenic headache (12/06/21) Physical Therapy Treatment Note PT-OP-A Visit Information Start: 11/18/21 10:51 Freq: Status: Active Protocol: Document 12/06/21 13:03 SP (Rec: 12/06/21 13:49 SP [id number]) Out-Patient Physical Therapy Visit Information Visit Information Visit Type Treatment Note Visit Start Time 13:03 Visit Stop Time 13:45 Total Visit Minutes 42 Visit Number 5 Number of RIVETER HELPER Visits 1 Evaluation Information Evaluation Date 11/21/21 PT-OP-B Current Condition Start: 11/18/21 10:51 Freq: Status: Active Protocol: Document 11/21/21 13:48 MB (Rec: 11/21/21 14:05 MB [id number]) Current Condition History of Current Condition Onset Date [age] years Current Complaints Posterior headache pain History of Current Condition Pt states that she has had headaches since her teens. She was told they were migraines when she had her hysterectomy at age 28 years. The headaches did not get better after that . Pt states that her headaches go in cycles. When she gets them, she gets them constantly and then they stop. She does exercise at [employer]. She walks and runs. She changed her diet and she cut out flour. She tried cutting out caffeine and it did not make a change. She went to [facility] for pelvic floor therapy. The therapist did something for her neck and she got relief. Her PT encouraged her to return to her PCP and she got the referral to this clinic. Pt reports 8-9/10 posterior head and neck pain and 7/10 shoulder and 6/10 intrascapular pain. Pt reports that she gets light and noise sensitivity with headaches. She gets dizzy and nauseated. She has some migraine medicines that she takes when she can but she only gets so many. When she can go to bed, that makes a difference. She has tried ice packs. Pt has a BiPap and the doctor says her sleep is good. She tries to go to bed between 10- 1030 and wakes up about 0630. She has a puppy and now her sleeping schedule is off. Pt works part-time and she does retail. Pt starts out on her stomach and winds up on her back. She uses her BiPap in this position. Her mattress is firm. Pt goes to massage once a month. She wishes she could live there. She drinks a lot of water. She drinks 66 oz a day. She drinks 1.5 cup of caffeinated coffee in the morning and 1 cup of coffee in the afternoon. Right now, she is drinking 3 cups with the dog. Pt reports that occ, her eyes feel pressurized and she feels she is strangly. Pt states that her back pain is doing fine. PT-OP-C Subjective Start: 11/18/21 10:51 Freq: Status: Active Protocol: Document 12/06/21 13:03 SP (Rec: 12/06/21 13:49 SP [id number]) OP-PT Subjective Patient Comments Patient Comments Pt states purchased a theracane and wants to review how to use it, informations packet didn't explain enough. Pt reported got woke up x2 with dog last night and tired. Pt states did some walkingout side. PT-OP-J Posture/Palpation/Skin Start: 11/18/21 10:51 Freq: Status: Active Protocol: Document 11/21/21 13:48 MB (Rec: 11/21/21 14:51 MB [id number]) Posture Evaluation Comments Posture Comments Standing posture without shoes : left AC joint is 1 in front of left tragus, left shoulder is about 1 higher than the left and pt is left hand dominant. Mild Dowager's hump and decreased normal curvature of spine at all levels with very flat thoracic spine, right iliac crest higher than the left, B knee valgus and some foot changes PT-OP-K Range of Motion Start: 11/18/21 10:51 Freq: Status: Active Protocol: Document 11/21/21 13:48 MB (Rec: 11/21/21 14:51 MB [id number]) Cervical Spine Range of Motion Cervical Spine Active Testing Position Standing Flexion 20 Extension 23 Rotation Left 40 Rotation Right 50 Lateral Flexion Left 25 Lateral Flexion Right 30 Shoulder Goniometric Range of Motion Shoulder Bilateral Shoulder ROM WFL Yes Testing Position Standing PT-OP-M Strength Start: 11/18/21 10:51 Freq: Status: Active Protocol: Document 11/21/21 13:48 MB (Rec: 11/21/21 14:51 MB [id number]) Shoulder Strength Shoulder Manual Muscle Testing Bilateral Flexion 5 Normal Abduction (C5) 5 Normal Elbow/Forearm Strength Elbow and Forearm Manual Muscle Testing Bilateral Flexion (C6) 5 Normal PT-OP-Q Treatments Start: 11/18/21 10:51 Freq: Status: Active Protocol: Document 12/06/21 13:03 SP (Rec: 12/06/21 13:49 SP [id number]) Therapeutic Exercises Supine Exercises supine chin tuck Supine Exercise Name hooklying arms relaxed at side Reps/Minutes 5 sec hold x5 Pelvic realignment exercises Supine Exercise Name reviewed HEP Side bilateral Reps/Minutes 5 reps, 3 sec hold all exercises Comments occasional cues for recall- similar but different does at [facility] Sidelying Exercises open book Sidelying Exercise Name REviewed HEP Side bilateral Equipment Used breath end feel range x2 Reps/Minutes x5 Comments good form, states helps so much, decrease pec tightness Standing Exercises theracane Standing Exercise Name UT, suboccipitals Side bilateral Reps/Minutes 4 min Comments MWM head nod/ turns Posture at the wall Standing Exercise Name wall roll ups Reps/Minutes x6 Comments cued TA, scap depression, post head on wall Other Exercises quadruped Other Exercise Name cat/ camel, cervical ext neutral, attempted UE flexion Comments good response cat/ camel, cued cS neutral ext, throbbing UE flexion Manual Therapy Treatment Soft Tissue Mobilization cervical Body Location L>R UT, SCM, LS, SOR, FINISHING PAN OPERATOR Mobilization Type Rolling,Sustained Pressure Intensity/Depth Moderate Body Position Supine Comments manual, reviewed on self STMs use of theracane had nods/ turns Manual Traction CS Body Position Supine Reps/Duration 2 min Comments manual PT-OP-T Assessment and Plan Start: 11/18/21 10:51 Freq: Status: Active Protocol: Document 12/06/21 13:03 SP (Rec: 12/06/21 13:49 SP [id number]) Physical Therapy Assessment Goals 2 Metal Tube Cutter Goal (LTG) Pt will perform progressive HEP with I including pelvic realignment, breathing, self- massage, postural, and strengthening exercises to improve cervical ROM and pain by 01/19/22. LTG Duration 8 weeks 1 [facility] Home Goal (LTG) Pt will report a 75% improvement in headaches and headache pain to improve quality of life by 01/19/22. LTG Duration 8 weeks Assessment Summary Assessment Pt states doesn't see an significant change in headaches but better understanding of use of theracane beginning of tx and finds very helpful for decreasing tension in neck. Reviewed HEP with good feedback increased AROM in scapular complex and TS and wall postural alignment challenging, improved corrections with cues. Attempted quadruped but caused throbbing sensation in top head so stopped. Physical Therapy Plan Frequency and Duration Frequency of Treatment 2x/Week Duration of Treatment 8 weeks Plan of Care Start Date 11/21/21 Plan of Care End Date 01/19/22 Therapeutic Interventions Therapeutic Interventions Home Exercise Program,Joint Mobilizations,Manual Therapy, Neuromuscular Re-education, Patient/Caregiver Education, Self-Care/Home Management,Soft Tissue Mobilization,Taping, Therapeutic Activities, Therapeutic Exercises Modalities Cold Pack/Ice Massage,Hot Packs Next Visit Focus/Plan Next Note Type Treatment Note Next Visit Plan Review HEP: CS and TS alignment, upper thoracic mobility, recheck self cervical soft tissue mobility, review gentle wall roll up initiated last tx.
--- NOTE | 2021-12-09 14:30 | PT.OTN ---
Current Diagnoses Cervicogenic headache (12/09/21) Physical Therapy Treatment Note PT-OP-A Visit Information Start: 11/18/21 10:51 Freq: Status: Active Protocol: Document 12/09/21 13:50 SP (Rec: 12/09/21 14:33 SP [id number]) Out-Patient Physical Therapy Visit Information Visit Information Visit Type Treatment Note Visit Start Time 13:50 Visit Stop Time 14:30 Total Visit Minutes 40 Visit Number 6 Number of CERTIFIED ENERGY MANAGER Visits 2 Evaluation Information Evaluation Date 11/21/21 PT-OP-B Current Condition Start: 11/18/21 10:51 Freq: Status: Active Protocol: Document 11/21/21 13:48 MB (Rec: 11/21/21 14:05 MB [id number]) Current Condition History of Current Condition Onset Date [age] years Current Complaints Posterior headache pain History of Current Condition Pt states that she has had headaches since her teens. She was told they were migraines when she had her hysterectomy at age 28 years. The headaches did not get better after that . Pt states that her headaches go in cycles. When she gets them, she gets them constantly and then they stop. She does exercise at [employer]. She walks and runs. She changed her diet and she cut out flour. She tried cutting out caffeine and it did not make a change. She went to [facility] for pelvic floor therapy. The therapist did something for her neck and she got relief. Her PT encouraged her to return to her PCP and she got the referral to this clinic. Pt reports 8-9/10 posterior head and neck pain and 7/10 shoulder and 6/10 intrascapular pain. Pt reports that she gets light and noise sensitivity with headaches. She gets dizzy and nauseated. She has some migraine medicines that she takes when she can but she only gets so many. When she can go to bed, that makes a difference. She has tried ice packs. Pt has a BiPap and the doctor says her sleep is good. She tries to go to bed between 10- 1030 and wakes up about 0630. She has a puppy and now her sleeping schedule is off. Pt works part-time and she does retail. Pt starts out on her stomach and winds up on her back. She uses her BiPap in this position. Her mattress is firm. Pt goes to massage once a month. She wishes she could live there. She drinks a lot of water. She drinks 66 oz a day. She drinks 1.5 cup of caffeinated coffee in the morning and 1 cup of coffee in the afternoon. Right now, she is drinking 3 cups with the dog. Pt reports that occ, her eyes feel pressurized and she feels she is strangly. Pt states that her back pain is doing fine. PT-OP-C Subjective Start: 11/18/21 10:51 Freq: Status: Active Protocol: Document 12/09/21 13:50 SP (Rec: 12/09/21 14:33 SP [id number]) OP-PT Subjective Patient Comments Patient Comments Pt stated having bad day but noticed sleeping better, not waking up with headaches as often. PT-OP-J Posture/Palpation/Skin Start: 11/18/21 10:51 Freq: Status: Active Protocol: Document 11/21/21 13:48 MB (Rec: 11/21/21 14:51 MB [id number]) Posture Evaluation Comments Posture Comments Standing posture without shoes : left AC joint is 1 in front of left tragus, left shoulder is about 1 higher than the left and pt is left hand dominant. Mild Dowager's hump and decreased normal curvature of spine at all levels with very flat thoracic spine, right iliac crest higher than the left, B knee valgus and some foot changes PT-OP-K Range of Motion Start: 11/18/21 10:51 Freq: Status: Active Protocol: Document 11/21/21 13:48 MB (Rec: 11/21/21 14:51 MB [id number]) Cervical Spine Range of Motion Cervical Spine Active Testing Position Standing Flexion 20 Extension 23 Rotation Left 40 Rotation Right 50 Lateral Flexion Left 25 Lateral Flexion Right 30 Shoulder Goniometric Range of Motion Shoulder Bilateral Shoulder ROM WFL Yes Testing Position Standing PT-OP-M Strength Start: 11/18/21 10:51 Freq: Status: Active Protocol: Document 11/21/21 13:48 MB (Rec: 11/21/21 14:51 MB [id number]) Shoulder Strength Shoulder Manual Muscle Testing Bilateral Flexion 5 Normal Abduction (C5) 5 Normal Elbow/Forearm Strength Elbow and Forearm Manual Muscle Testing Bilateral Flexion (C6) 5 Normal PT-OP-Q Treatments Start: 11/18/21 10:51 Freq: Status: Active Protocol: Document 12/09/21 13:50 SP (Rec: 12/09/21 14:33 SP [id number]) Therapeutic Exercises Supine Exercises supine chin tuck Supine Exercise Name hooklying arms relaxed at side , then CS rotation w/ small range head nod Side bilateral Reps/Minutes x5 nods Comments litte discomfort rotation, then ok with painfree range. Log rolling technique Comments good performance Sidelying Exercises open book Sidelying Exercise Name REviewed HEP Side bilateral Equipment Used breath end feel range x2 Reps/Minutes x5 Comments good form, states helps so much, decrease pec tightness Sitting Exercises UT, lev scap stretch Sitting Exercise Name added stretch Side bilateral Reps/Minutes 30 each Comments cued set up stretch, can add gentle over pressure- good response stretch Standing Exercises resisted rows Standing Exercise Name added to HEP Side bilateral Resistance TB #1 Reps/Minutes x10 Comments cued scap retract/depress stabilization, no UT recruitment- good feedback shld ext Standing Exercise Name added to HEP Side bilateral Resistance TB #1 Reps/Minutes x10 Comments cued scap retract/depress stabilization, no UT recruitment- good feedback Racquet ball massage Standing Exercise Name Discussed performs at home for self STMs- helpful Side bilateral Resistance reviewed HEP Equipment Used racquetball Comments good feedback response- pain free Other Exercises quadruped thread needle Other Exercise Name added to HEP Side bilateral Resistance AROM Reps/Minutes x8 Comments stiff at first then able move further, states little work- good feedback re quadruped Other Exercise Name cat/ camel, cervical ext neutral Reps/Minutes x8 Comments good response cat/ camel, cued cS neutral ext, Manual Therapy Treatment Soft Tissue Mobilization cervical Body Location L>R UT, SCM, LS, SOR, BOOK SEWING MACHINE OPERATOR Mobilization Type Rolling,Sustained Pressure Intensity/Depth Moderate Body Position Supine Comments manual Manual Traction CS Body Position Supine Reps/Duration 2 min Comments manual Self-Care/Home Management Treatment Education Patient Education Body Mechanics,Home Exercise Program,Pain Management, Posture Other Education Reviewed self STMs pincer knead SCM, ball wall post/ inter scap/ theracane posterior neck MWM / Initiated quadruped cat/camel and thread needle good repsonse. Extra time spent review on anatomy and postural awareness with better understanding decrease tightness and hope decrease tension on head and reduction in headaches carryover to quadruped and open book. Reviewed sleeping postural positioning of pillows on side betweenBLE, noodle/ towel roll under neck in bottom pillow in pillow case for alignment support, found more supportive and comfortable. PT-OP-T Assessment and Plan Start: 11/18/21 10:51 Freq: Status: Active Protocol: Document 12/09/21 13:50 SP (Rec: 12/09/21 14:33 SP [id number]) Physical Therapy Assessment Goals 2 Binding Nicker Goal (LTG) Pt will perform progressive HEP with I including pelvic realignment, breathing, self- massage, postural, and strengthening exercises to improve cervical ROM and pain by 01/19/22. LTG Duration 8 weeks 1 [facility] Goal (LTG) Pt will report a 75% improvement in headaches and headache pain to improve quality of life by 01/19/22. LTG Duration 8 weeks Assessment Summary Assessment Pt stated alot less pain and tightness in neck and head. Slight head ache end tx but over all alot better than when arrived. Feels initially tight and not as mobile but gained more movement, can turn head/ trunk better. Physical Therapy Plan Frequency and Duration Frequency of Treatment 2x/Week Duration of Treatment 8 weeks Plan of Care Start Date 11/21/21 Plan of Care End Date 01/19/22 Therapeutic Interventions Therapeutic Interventions Home Exercise Program,Joint Mobilizations,Manual Therapy, Neuromuscular Re-education, Patient/Caregiver Education, Self-Care/Home Management,Soft Tissue Mobilization,Taping, Therapeutic Activities, Therapeutic Exercises Modalities Cold Pack/Ice Massage,Hot Packs Next Visit Focus/Plan Next Note Type Treatment Note Next Visit Plan Review HEP: recheck openbook, thread needle, cat/camel, shld rows, wall roll ups w/or without shld ER into ext back to wall. POC: CS and TS alignment, upper thoracic mobility, recheck self cervical soft tissue mobility, review gentle wall roll up initiated last tx.
--- NOTE | 2021-12-13 12:15 | PT.OTN ---
Current Diagnoses Cervicogenic headache (12/13/21) Physical Therapy Treatment Note PT-OP-A Visit Information Start: 11/18/21 10:51 Freq: Status: Active Protocol: Document 12/13/21 10:35 [facility] (Rec: 12/13/21 12:15 [facility] [id number]) Out-Patient Physical Therapy Visit Information Visit Information Visit Type Treatment Note Visit Start Time 10:35 Visit Stop Time 11:25 Total Visit Minutes 50 Visit Number 7 Number of TIP PUNCHER Visits 0 PT-OP-B Current Condition Start: 11/18/21 10:51 Freq: Status: Active Protocol: Document 11/21/21 13:48 MB (Rec: 11/21/21 14:05 MB [id number]) Current Condition History of Current Condition Onset Date [age] years Current Complaints Posterior headache pain History of Current Condition Pt states that she has had headaches since her teens. She was told they were migraines when she had her hysterectomy at age 28 years. The headaches did not get better after that . Pt states that her headaches go in cycles. When she gets them, she gets them constantly and then they stop. She does exercise at [employer]. She walks and runs. She changed her diet and she cut out flour. She tried cutting out caffeine and it did not make a change. She went to [facility] for pelvic floor therapy. The therapist did something for her neck and she got relief. Her PT encouraged her to return to her PCP and she got the referral to this clinic. Pt reports 8-9/10 posterior head and neck pain and 7/10 shoulder and 6/10 intrascapular pain. Pt reports that she gets light and noise sensitivity with headaches. She gets dizzy and nauseated. She has some migraine medicines that she takes when she can but she only gets so many. When she can go to bed, that makes a difference. She has tried ice packs. Pt has a BiPap and the doctor says her sleep is good. She tries to go to bed between 10- 1030 and wakes up about 0630. She has a puppy and now her sleeping schedule is off. Pt works part-time and she does retail. Pt starts out on her stomach and winds up on her back. She uses her BiPap in this position. Her mattress is firm. Pt goes to massage once a month. She wishes she could live there. She drinks a lot of water. She drinks 66 oz a day. She drinks 1.5 cup of caffeinated coffee in the morning and 1 cup of coffee in the afternoon. Right now, she is drinking 3 cups with the dog. Pt reports that occ, her eyes feel pressurized and she feels she is strangly. Pt states that her back pain is doing fine. PT-OP-C Subjective Start: 11/18/21 10:51 Freq: Status: Active Protocol: Document 12/13/21 10:35 LR (Rec: 12/13/21 12:15 [facility] [id number]) OP-PT Subjective Patient Comments Patient Comments Pt reports FERMIN have been up and down. HAs been doing exercises PT-OP-J Posture/Palpation/Skin Start: 11/18/21 10:51 Freq: Status: Active Protocol: Document 11/21/21 13:48 MB (Rec: 11/21/21 14:51 MB [id number]) Posture Evaluation Comments Posture Comments Standing posture without shoes : left AC joint is 1 in front of left tragus, left shoulder is about 1 higher than the left and pt is left hand dominant. Mild Dowager's hump and decreased normal curvature of spine at all levels with very flat thoracic spine, right iliac crest higher than the left, B knee valgus and some foot changes PT-OP-K Range of Motion Start: 11/18/21 10:51 Freq: Status: Active Protocol: Document 11/21/21 13:48 MB (Rec: 11/21/21 14:51 MB [id number]) Cervical Spine Range of Motion Cervical Spine Active Testing Position Standing Flexion 20 Extension 23 Rotation Left 40 Rotation Right 50 Lateral Flexion Left 25 Lateral Flexion Right 30 Shoulder Goniometric Range of Motion Shoulder Bilateral Shoulder ROM WFL Yes Testing Position Standing PT-OP-M Strength Start: 11/18/21 10:51 Freq: Status: Active Protocol: Document 11/21/21 13:48 MB (Rec: 11/21/21 14:51 MB [id number]) Shoulder Strength Shoulder Manual Muscle Testing Bilateral Flexion 5 Normal Abduction (C5) 5 Normal Elbow/Forearm Strength Elbow and Forearm Manual Muscle Testing Bilateral Flexion (C6) 5 Normal PT-OP-Q Treatments Start: 11/18/21 10:51 Freq: Status: Active Protocol: Document 12/13/21 10:35 LR (Rec: 12/13/21 12:15 [facility] [id number]) Therapeutic Exercises Standing Exercises resisted rows Standing Exercise Name review HEP Side bilateral Resistance TB #1 Reps/Minutes 2x10 Comments cued scap retract/depress stabilization, no UT recruitment- good feedback shld ext Standing Exercise Name review HEP Side bilateral Resistance TB #1 Reps/Minutes x10 Comments cued scap retract/depress stabilization, no UT recruitment- good feedback Posture at the wall Standing Exercise Name wall roll ups progressed to w/ shoulder ext w/palms fwd Side bilateral Reps/Minutes 8 min Comments cued TA, scap depression, post head on wall Manual Therapy Treatment Soft Tissue Mobilization cranium Body Location temporalis Mobilization Type Rolling Intensity/Depth Superficial Body Position Supine cervical Body Location L>R UT, SCM, LS, SOR, C paraspinals Mobilization Type Rolling,Sustained Pressure Intensity/Depth Moderate Body Position Supine Comments manual Joint Mobilizations ribs Comments 1. rib 2-3 AP FM 2. ribs 1-3 caudal FM thoracic Comments T1 transverse L FM Manual Traction CS Body Position Supine Reps/Duration 1 min Comments manual Self-Care/Home Management Treatment Education Other Education review of sleep position w/2 pillows under knees. PT-OP-T Assessment and Plan Start: 11/18/21 10:51 Freq: Status: Active Protocol: Document 12/13/21 10:35 [facility] (Rec: 12/13/21 12:15 [facility] [id number]) Physical Therapy Assessment Goals 2 Residential Goal (LTG) Pt will perform progressive HEP with I including pelvic realignment, breathing, self- massage, postural, and strengthening exercises to improve cervical ROM and pain by 01/19/22. LTG Duration 8 weeks 1 Metal Buggy Operator Goal (LTG) Pt will report a 75% improvement in headaches and headache pain to improve quality of life by 01/19/22. LTG Duration 8 weeks Assessment Summary Assessment Pt had improved cervical ROM R rot & SB to B PROM after manual treatment w/less discomfort. She has signficiant use of UT w/tband exercises so spent extra time w/exercises w/tband w/cueing and edu for apprpriate motion w/retraction w/o lumbar ext. Physical Therapy Plan Frequency and Duration Frequency of Treatment 2x/Week Duration of Treatment 8 weeks Plan of Care Start Date 11/21/21 Plan of Care End Date 01/19/22 Next Visit Focus/Plan Next Note Type Treatment Note Next Visit Plan review exercises further, work on manual to help dec pain.
--- NOTE | 2021-12-15 13:46 | PT.OTN ---
Current Diagnoses Cervicogenic headache (12/15/21) Physical Therapy Treatment Note PT-OP-A Visit Information Start: 11/18/21 10:51 Freq: Status: Active Protocol: Document 12/15/21 13:05 SP (Rec: 12/15/21 13:48 SP [id number]) Out-Patient Physical Therapy Visit Information Visit Information Visit Type Treatment Note Visit Start Time 13:05 Visit Stop Time 13:46 Total Visit Minutes 41 Visit Number 8 Number of BARGE CAPTAIN Visits 1 Evaluation Information Evaluation Date 11/21/21 PT-OP-B Current Condition Start: 11/18/21 10:51 Freq: Status: Active Protocol: Document 11/21/21 13:48 MB (Rec: 11/21/21 14:05 MB [id number]) Current Condition History of Current Condition Onset Date [age] years Current Complaints Posterior headache pain History of Current Condition Pt states that she has had headaches since her teens. She was told they were migraines when she had her hysterectomy at age 28 years. The headaches did not get better after that . Pt states that her headaches go in cycles. When she gets them, she gets them constantly and then they stop. She does exercise at [employer]. She walks and runs. She changed her diet and she cut out flour. She tried cutting out caffeine and it did not make a change. She went to [facility] for pelvic floor therapy. The therapist did something for her neck and she got relief. Her PT encouraged her to return to her PCP and she got the referral to this clinic. Pt reports 8-9/10 posterior head and neck pain and 7/10 shoulder and 6/10 intrascapular pain. Pt reports that she gets light and noise sensitivity with headaches. She gets dizzy and nauseated. She has some migraine medicines that she takes when she can but she only gets so many. When she can go to bed, that makes a difference. She has tried ice packs. Pt has a BiPap and the doctor says her sleep is good. She tries to go to bed between 10- 1030 and wakes up about 0630. She has a puppy and now her sleeping schedule is off. Pt works part-time and she does retail. Pt starts out on her stomach and winds up on her back. She uses her BiPap in this position. Her mattress is firm. Pt goes to massage once a month. She wishes she could live there. She drinks a lot of water. She drinks 66 oz a day. She drinks 1.5 cup of caffeinated coffee in the morning and 1 cup of coffee in the afternoon. Right now, she is drinking 3 cups with the dog. Pt reports that occ, her eyes feel pressurized and she feels she is strangly. Pt states that her back pain is doing fine. PT-OP-C Subjective Start: 11/18/21 10:51 Freq: Status: Active Protocol: Document 12/15/21 13:05 SP (Rec: 12/15/21 13:48 SP [id number]) OP-PT Subjective Patient Comments Patient Comments Pt stated busy morning, scrubbing floor, was able to complete but had tension in head neck but able to turned head to talk to short period of time with out adverse affects but tires with head turn. She reports has to go home and clean shower, is the most challenging and usually has pain, might ask her to do for her. PT-OP-J Posture/Palpation/Skin Start: 11/18/21 10:51 Freq: Status: Active Protocol: Document 11/21/21 13:48 MB (Rec: 11/21/21 14:51 MB [id number]) Posture Evaluation Comments Posture Comments Standing posture without shoes : left AC joint is 1 in front of left tragus, left shoulder is about 1 higher than the left and pt is left hand dominant. Mild Dowager's hump and decreased normal curvature of spine at all levels with very flat thoracic spine, right iliac crest higher than the left, B knee valgus and some foot changes PT-OP-K Range of Motion Start: 11/18/21 10:51 Freq: Status: Active Protocol: Document 11/21/21 13:48 MB (Rec: 11/21/21 14:51 MB [id number]) Cervical Spine Range of Motion Cervical Spine Active Testing Position Standing Flexion 20 Extension 23 Rotation Left 40 Rotation Right 50 Lateral Flexion Left 25 Lateral Flexion Right 30 Shoulder Goniometric Range of Motion Shoulder Bilateral Shoulder ROM WFL Yes Testing Position Standing PT-OP-M Strength Start: 11/18/21 10:51 Freq: Status: Active Protocol: Document 11/21/21 13:48 MB (Rec: 11/21/21 14:51 MB [id number]) Shoulder Strength Shoulder Manual Muscle Testing Bilateral Flexion 5 Normal Abduction (C5) 5 Normal Elbow/Forearm Strength Elbow and Forearm Manual Muscle Testing Bilateral Flexion (C6) 5 Normal PT-OP-Q Treatments Start: 11/18/21 10:51 Freq: Status: Active Protocol: Document 12/15/21 13:05 SP (Rec: 12/15/21 13:48 SP [id number]) Therapeutic Exercises Supine Exercises scap retraction Supine Exercise Name prep standing TB ex alignment awareness Side bilateral Resistance AROM Reps/Minutes 5 s x5 Comments cued relax jaw w/ neutral CS, good shld depression neutral form Sitting Exercises UT, lev scap stretch Sitting Exercise Name standing post wall posture roll ups Side bilateral Reps/Minutes 30 each Comments cued set up stretch, can add gentle over pressure- good response stretch Standing Exercises resisted rows Standing Exercise Name review HEP Side bilateral Resistance TB #1 Reps/Minutes 2x10 Comments cued scap retract/depress stabilization, no UT recruitment- good feedback shld ext Standing Exercise Name review HEP Side bilateral Resistance TB #1 Reps/Minutes x10 Comments cued scap retract/depress stabilization, no UT recruitment- good feedback theracane Standing Exercise Name UT, suboccipitals Side bilateral Equipment Used to hard to do post scap musculature Reps/Minutes 4 min Comments MWM head nod/ turns- good feedback response that really feels good Posture at the wall Standing Exercise Name wall roll ups progressed to w/ shoulder ext w/palms fwd Side bilateral Equipment Used improved Reps/Minutes 5 reps, 5 sec hold Comments cued TA, scap depression, post head on wall Racquet ball massage Standing Exercise Name Discussed performs post scap/ interscap on wall Side bilateral Resistance reviewed HEP Equipment Used racquetball Comments good feedback response at home - pain free Manual Therapy Treatment Soft Tissue Mobilization pec Body Location L>R pec minor Mobilization Type Cross-Friction,Myofascial Release,Sustained Pressure Intensity/Depth Moderate Body Position Hooklying Comments manual, scap retraction post with improved shld able to move back easier. cranium Body Location temporalis Mobilization Type Rolling Intensity/Depth Superficial Body Position Supine cervical Body Location L>R UT, SCM, LS, SOR, C paraspinals Mobilization Type Rolling,Sustained Pressure Intensity/Depth Moderate Body Position Supine Comments manual Self-Care/Home Management Treatment Education Patient Education Body Mechanics,Pain Management ,Posture Other Education discussed trunk, neck, body mechanics while scrubbing floors in quadruped and cleaning shower (rn clinical tub, valentine then quadruped bottom with good alignment as in PT). Better understanding. PT-OP-T Assessment and Plan Start: 11/18/21 10:51 Freq: Status: Active Protocol: Document 12/15/21 13:05 SP (Rec: 12/15/21 13:48 SP [id number]) Physical Therapy Assessment Goals 2 Application Design Engineer Goal (LTG) Pt will perform progressive HEP with I including pelvic realignment, breathing, self- massage, postural, and strengthening exercises to improve cervical ROM and pain by 01/19/22. LTG Duration 8 weeks 1 Senior Care Goal (LTG) Pt will report a 75% improvement in headaches and headache pain to improve quality of life by 01/19/22. LTG Duration 8 weeks Assessment Summary Assessment Pt responded well to manual, able to turn head better. Improved posture and improved self correction understanding proper form HEP with postural alignment and adding self STMs w/ theracane/ ball on wall for decrease tightness during ADLs. Pt better understanding trunk/postural alignment for cleaning bathroom quadruped and squat in shower,use R and L for not over tire one side post education. Physical Therapy Plan Frequency and Duration Frequency of Treatment 2x/Week Duration of Treatment 8 weeks Plan of Care Start Date 11/21/21 Plan of Care End Date 01/19/22 Therapeutic Interventions Therapeutic Interventions Home Exercise Program,Joint Mobilizations,Manual Therapy, Neuromuscular Re-education, Patient/Caregiver Education, Self-Care/Home Management,Soft Tissue Mobilization,Taping, Therapeutic Activities, Therapeutic Exercises Modalities Cold Pack/Ice Massage,Hot Packs Next Visit Focus/Plan Next Note Type Treatment Note Next Visit Plan Recheck how responded post last tx and cleaning bathroom. POC: review exercises further, work on manual to help dec pain.
--- NOTE | 2021-12-20 12:23 | PT.OTN ---
Current Diagnoses Cervicogenic headache (12/20/21) Physical Therapy Treatment Note PT-OP-A Visit Information Start: 11/18/21 10:51 Freq: Status: Active Protocol: Document 12/20/21 10:38 [facility] (Rec: 12/20/21 12:23 [facility] [id number]) Out-Patient Physical Therapy Visit Information Visit Information Visit Type Treatment Note Visit Start Time 10:36 Visit Stop Time 11:20 Total Visit Minutes 43 Visit Number 9 Number of COATER CARBON PAPER Visits 0 PT-OP-B Current Condition Start: 11/18/21 10:51 Freq: Status: Active Protocol: Document 11/21/21 13:48 MB (Rec: 11/21/21 14:05 MB [id number]) Current Condition History of Current Condition Onset Date [age] years Current Complaints Posterior headache pain History of Current Condition Pt states that she has had headaches since her teens. She was told they were migraines when she had her hysterectomy at age 28 years. The headaches did not get better after that . Pt states that her headaches go in cycles. When she gets them, she gets them constantly and then they stop. She does exercise at [employer]. She walks and runs. She changed her diet and she cut out flour. She tried cutting out caffeine and it did not make a change. She went to [facility] for pelvic floor therapy. The therapist did something for her neck and she got relief. Her PT encouraged her to return to her PCP and she got the referral to this clinic. Pt reports 8-9/10 posterior head and neck pain and 7/10 shoulder and 6/10 intrascapular pain. Pt reports that she gets light and noise sensitivity with headaches. She gets dizzy and nauseated. She has some migraine medicines that she takes when she can but she only gets so many. When she can go to bed, that makes a difference. She has tried ice packs. Pt has a BiPap and the doctor says her sleep is good. She tries to go to bed between 10- 1030 and wakes up about 0630. She has a puppy and now her sleeping schedule is off. Pt works part-time and she does retail. Pt starts out on her stomach and winds up on her back. She uses her BiPap in this position. Her mattress is firm. Pt goes to massage once a month. She wishes she could live there. She drinks a lot of water. She drinks 66 oz a day. She drinks 1.5 cup of caffeinated coffee in the morning and 1 cup of coffee in the afternoon. Right now, she is drinking 3 cups with the dog. Pt reports that occ, her eyes feel pressurized and she feels she is strangly. Pt states that her back pain is doing fine. PT-OP-C Subjective Start: 11/18/21 10:51 Freq: Status: Active Protocol: Document 12/20/21 10:38 LR (Rec: 12/20/21 12:23 [facility] [id number]) OP-PT Subjective Patient Comments Patient Comments Pt reports FERMIN are now more moderate but still daily. Less pain in general. Got a down/ feather pillow to try Patient Reported Progress Improving PT-OP-J Posture/Palpation/Skin Start: 11/18/21 10:51 Freq: Status: Active Protocol: Document 11/21/21 13:48 MB (Rec: 11/21/21 14:51 MB [id number]) Posture Evaluation Comments Posture Comments Standing posture without shoes : left AC joint is 1 in front of left tragus, left shoulder is about 1 higher than the left and pt is left hand dominant. Mild Dowager's hump and decreased normal curvature of spine at all levels with very flat thoracic spine, right iliac crest higher than the left, B knee valgus and some foot changes PT-OP-K Range of Motion Start: 11/18/21 10:51 Freq: Status: Active Protocol: Document 11/21/21 13:48 MB (Rec: 11/21/21 14:51 MB [id number]) Cervical Spine Range of Motion Cervical Spine Active Testing Position Standing Flexion 20 Extension 23 Rotation Left 40 Rotation Right 50 Lateral Flexion Left 25 Lateral Flexion Right 30 Shoulder Goniometric Range of Motion Shoulder Bilateral Shoulder ROM WFL Yes Testing Position Standing PT-OP-M Strength Start: 11/18/21 10:51 Freq: Status: Active Protocol: Document 11/21/21 13:48 MB (Rec: 11/21/21 14:51 MB [id number]) Shoulder Strength Shoulder Manual Muscle Testing Bilateral Flexion 5 Normal Abduction (C5) 5 Normal Elbow/Forearm Strength Elbow and Forearm Manual Muscle Testing Bilateral Flexion (C6) 5 Normal PT-OP-Q Treatments Start: 11/18/21 10:51 Freq: Status: Active Protocol: Document 12/20/21 10:38 [facility] (Rec: 12/20/21 12:23 [facility] [id number]) Cardio Equipment Elliptical Duration (Minutes) 2 Resistance 3 Other cues scap retraction Therapeutic Exercises Standing Exercises resisted rows Standing Exercise Name review HEP Side bilateral Resistance TB #1 Reps/Minutes 2x10 Comments cued scap retract/depress stabilization, no UT recruitment- good feedback shld ext Standing Exercise Name review HEP Side bilateral Resistance TB #1 Reps/Minutes x10 Comments cued scap retract/depress stabilization, no UT recruitment- good feedback Posture at the wall Standing Exercise Name wall roll ups progressed to w/ shoulder ext w/palms fwd then 90/90 Habd Side bilateral Equipment Used improved Reps/Minutes 5 min Comments cued TA, scap depression, post head on wall Manual Therapy Treatment Soft Tissue Mobilization cervical Body Location L>R UT, SCM, LS, SOR, C paraspinals Mobilization Type Rolling,Sustained Pressure Intensity/Depth Moderate Body Position Supine Comments manual Joint Mobilizations cervical Grade I Comments c1 transverse L Self-Care/Home Management Treatment Education Other Education edu to pt re: importance of scap depression& retraction & implications to neck, discussed trying some elliptical and/or hill walks to work on inc cardio w/o inc pain, edu to not just start running and want to build back strength and cardio prior to returning & dec pain further. Edu on pillow options to add more support like towel folded under. PT-OP-T Assessment and Plan Start: 11/18/21 10:51 Freq: Status: Active Protocol: Document 12/20/21 10:38 [facility] (Rec: 12/20/21 12:23 [facility] [id number]) Physical Therapy Assessment Goals 2 Shelter Goal (LTG) Pt will perform progressive HEP with I including pelvic realignment, breathing, self- massage, postural, and strengthening exercises to improve cervical ROM and pain by 01/19/22. LTG Duration 8 weeks 1 Shelter Goal (LTG) Pt will report a 75% improvement in headaches and headache pain to improve quality of life by 01/19/22. LTG Duration 8 weeks Assessment Summary Assessment Pt did better w/exercises today but still requied cueinga nd edu re: scap movement during resisted exercises. Improving rotation of cervical spine. Physical Therapy Plan Frequency and Duration Frequency of Treatment 2x/Week Duration of Treatment 8 weeks Plan of Care Start Date 11/21/21 Plan of Care End Date 01/19/22 Next Visit Focus/Plan Next Note Type Treatment Note Next Visit Plan cont to work on postural stability & cehck neck ROM and use manual
--- NOTE | 2021-12-23 11:17 | PT.OTN ---
Current Diagnoses Cervicogenic headache (12/23/21) Physical Therapy Treatment Note PT-OP-A Visit Information Start: 11/18/21 10:51 Freq: Status: Active Protocol: Document 12/23/21 10:34 SP (Rec: 12/23/21 11:25 SP [id number]) Out-Patient Physical Therapy Visit Information Visit Information Visit Type Treatment Note Visit Start Time 10:34 Visit Stop Time 11:17 Total Visit Minutes 43 Visit Number 10 Number of SPIRAL WINDER Visits 1 Evaluation Information Evaluation Date 11/21/21 PT-OP-B Current Condition Start: 11/18/21 10:51 Freq: Status: Active Protocol: Document 11/21/21 13:48 MB (Rec: 11/21/21 14:05 MB [id number]) Current Condition History of Current Condition Onset Date [age] years Current Complaints Posterior headache pain History of Current Condition Pt states that she has had headaches since her teens. She was told they were migraines when she had her hysterectomy at age 28 years. The headaches did not get better after that . Pt states that her headaches go in cycles. When she gets them, she gets them constantly and then they stop. She does exercise at [employer]. She walks and runs. She changed her diet and she cut out flour. She tried cutting out caffeine and it did not make a change. She went to [facility] for pelvic floor therapy. The therapist did something for her neck and she got relief. Her PT encouraged her to return to her PCP and she got the referral to this clinic. Pt reports 8-9/10 posterior head and neck pain and 7/10 shoulder and 6/10 intrascapular pain. Pt reports that she gets light and noise sensitivity with headaches. She gets dizzy and nauseated. She has some migraine medicines that she takes when she can but she only gets so many. When she can go to bed, that makes a difference. She has tried ice packs. Pt has a BiPap and the doctor says her sleep is good. She tries to go to bed between 10- 1030 and wakes up about 0630. She has a puppy and now her sleeping schedule is off. Pt works part-time and she does retail. Pt starts out on her stomach and winds up on her back. She uses her BiPap in this position. Her mattress is firm. Pt goes to massage once a month. She wishes she could live there. She drinks a lot of water. She drinks 66 oz a day. She drinks 1.5 cup of caffeinated coffee in the morning and 1 cup of coffee in the afternoon. Right now, she is drinking 3 cups with the dog. Pt reports that occ, her eyes feel pressurized and she feels she is strangly. Pt states that her back pain is doing fine. PT-OP-C Subjective Start: 11/18/21 10:51 Freq: Status: Active Protocol: Document 12/23/21 10:34 SP (Rec: 12/23/21 11:25 SP [id number]) OP-PT Subjective Patient Comments Patient Comments Pt states thinks did fine after last tx. Pt stated took 2 walks on inclines, neck and head did well, legs were tired , was cold with weather lately . Patient Reported Progress Improving PT-OP-J Posture/Palpation/Skin Start: 11/18/21 10:51 Freq: Status: Active Protocol: Document 11/21/21 13:48 MB (Rec: 11/21/21 14:51 MB [id number]) Posture Evaluation Comments Posture Comments Standing posture without shoes : left AC joint is 1 in front of left tragus, left shoulder is about 1 higher than the left and pt is left hand dominant. Mild Dowager's hump and decreased normal curvature of spine at all levels with very flat thoracic spine, right iliac crest higher than the left, B knee valgus and some foot changes PT-OP-K Range of Motion Start: 11/18/21 10:51 Freq: Status: Active Protocol: Document 11/21/21 13:48 MB (Rec: 11/21/21 14:51 MB [id number]) Cervical Spine Range of Motion Cervical Spine Active Testing Position Standing Flexion 20 Extension 23 Rotation Left 40 Rotation Right 50 Lateral Flexion Left 25 Lateral Flexion Right 30 Shoulder Goniometric Range of Motion Shoulder Bilateral Shoulder ROM WFL Yes Testing Position Standing PT-OP-M Strength Start: 11/18/21 10:51 Freq: Status: Active Protocol: Document 11/21/21 13:48 MB (Rec: 11/21/21 14:51 MB [id number]) Shoulder Strength Shoulder Manual Muscle Testing Bilateral Flexion 5 Normal Abduction (C5) 5 Normal Elbow/Forearm Strength Elbow and Forearm Manual Muscle Testing Bilateral Flexion (C6) 5 Normal PT-OP-Q Treatments Start: 11/18/21 10:51 Freq: Status: Active Protocol: Document 12/23/21 10:34 SP (Rec: 12/23/21 11:25 SP [id number]) Cardio Equipment Upper Body Ergometer (UBE) Duration (Minutes) 6 RPM 90 Seat Position see 10 Height 2.25 Other feel like has to pull more on R than L, ok on neck. Therapeutic Exercises Standing Exercises resisted scap retraction Standing Exercise Name added to HEP Side bilateral Resistance Tb #1 Equipment Used mirror for self alignment Reps/Minutes x10 Comments cued elevated posture, neutral CS, level B shld, elbows at side resisted rows Standing Exercise Name review HEP Side bilateral Resistance TB #1 Reps/Minutes 2x10 Comments improved form, no UT recruitment shld ext Standing Exercise Name review HEP Side bilateral Resistance TB #1 Reps/Minutes x10 Comments improved form, no UT recruitment theracane Standing Exercise Name UT, suboccipitals Side bilateral Equipment Used states does at work when needed Reps/Minutes 2 min Comments MWM head nod/ turns- good feedback response that really feels good PT-OP-T Assessment and Plan Start: 11/18/21 10:51 Freq: Status: Active Protocol: Document 12/23/21 10:34 SP (Rec: 12/23/21 11:25 SP [id number]) Physical Therapy Assessment Goals 2 Intermediate Goal (LTG) Pt will perform progressive HEP with I including pelvic realignment, breathing, self- massage, postural, and strengthening exercises to improve cervical ROM and pain by 01/19/22. LTG Duration 8 weeks 1 Intermediate Goal (LTG) Pt will report a 75% improvement in headaches and headache pain to improve quality of life by 01/19/22. 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 LTG Duration 8 weeks Assessment Summary Assessment Pt improved self corrections on scapular positioning during standing HEP, reviewed awareness of jaw relaxed no recruitment. Initiated resisted scap retraction w/ little shld ER with report can feel good upper back muscles haven't used in while, improved head posture and cued jaw relaxed to decrease neck/ head tension. Good demonstration self theracane understanding. Pt states little head/neck tension at arrival, gone post manual. Physical Therapy Plan Frequency and Duration Frequency of Treatment 2x/Week Duration of Treatment 8 weeks Plan of Care Start Date 11/21/21 Plan of Care End Date 01/19/22 Therapeutic Interventions Therapeutic Interventions Home Exercise Program,Joint Mobilizations,Manual Therapy, Neuromuscular Re-education, Patient/Caregiver Education, Self-Care/Home Management,Soft Tissue Mobilization,Taping, Therapeutic Activities, Therapeutic Exercises Modalities Cold Pack/Ice Massage,Hot Packs Next Visit Focus/Plan Next Note Type Treatment Note Next Visit Plan Recheck response to last tx: added UBE, resisted scap retraction/ ER. POC: cont to work on postural stability & cehck neck ROM and use manual
--- NOTE | 2021-12-27 11:16 | PT.OTN ---
Current Diagnoses Cervicogenic headache (12/27/21) Physical Therapy Treatment Note PT-OP-A Visit Information Start: 11/18/21 10:51 Freq: Status: Active Protocol: Document 12/27/21 10:32 SP (Rec: 12/27/21 11:27 SP [id number]) Out-Patient Physical Therapy Visit Information Visit Information Visit Type Treatment Note Visit Start Time 10:32 Visit Stop Time 11:16 Total Visit Minutes 44 Visit Number 11 Number of EXTENSION EDGER Visits 2 Evaluation Information Evaluation Date 11/21/21 PT-OP-B Current Condition Start: 11/18/21 10:51 Freq: Status: Active Protocol: Document 11/21/21 13:48 MB (Rec: 11/21/21 14:05 MB [id number]) Current Condition History of Current Condition Onset Date [age] years Current Complaints Posterior headache pain History of Current Condition Pt states that she has had headaches since her teens. She was told they were migraines when she had her hysterectomy at age 28 years. The headaches did not get better after that . Pt states that her headaches go in cycles. When she gets them, she gets them constantly and then they stop. She does exercise at [employer]. She walks and runs. She changed her diet and she cut out flour. She tried cutting out caffeine and it did not make a change. She went to [facility] for pelvic floor therapy. The therapist did something for her neck and she got relief. Her PT encouraged her to return to her PCP and she got the referral to this clinic. Pt reports 8-9/10 posterior head and neck pain and 7/10 shoulder and 6/10 intrascapular pain. Pt reports that she gets light and noise sensitivity with headaches. She gets dizzy and nauseated. She has some migraine medicines that she takes when she can but she only gets so many. When she can go to bed, that makes a difference. She has tried ice packs. Pt has a BiPap and the doctor says her sleep is good. She tries to go to bed between 10- 1030 and wakes up about 0630. She has a puppy and now her sleeping schedule is off. Pt works part-time and she does retail. Pt starts out on her stomach and winds up on her back. She uses her BiPap in this position. Her mattress is firm. Pt goes to massage once a month. She wishes she could live there. She drinks a lot of water. She drinks 66 oz a day. She drinks 1.5 cup of caffeinated coffee in the morning and 1 cup of coffee in the afternoon. Right now, she is drinking 3 cups with the dog. Pt reports that occ, her eyes feel pressurized and she feels she is strangly. Pt states that her back pain is doing fine. PT-OP-C Subjective Start: 11/18/21 10:51 Freq: Status: Active Protocol: Document 12/27/21 10:32 SP (Rec: 12/27/21 11:27 SP [id number]) OP-PT Subjective Patient Comments Patient Comments Pt reports not having a good day, 9/10 pain with active migraine, pretty nauseous, almost want to cry. Had a migraine going to bed, took medication has that helps relax her, slept good but once started moving around has worsened, didn't want to cancel due to being charged. Pt stated over all migraines have lessened 50%, had them almost daily pre PT and not going every other day to every 3 days. Today's is the worst every had and not sure why/ what did different. PT-OP-J Posture/Palpation/Skin Start: 11/18/21 10:51 Freq: Status: Active Protocol: Document 11/21/21 13:48 MB (Rec: 11/21/21 14:51 MB [id number]) Posture Evaluation Comments Posture Comments Standing posture without shoes : left AC joint is 1 in front of left tragus, left shoulder is about 1 higher than the left and pt is left hand dominant. Mild Dowager's hump and decreased normal curvature of spine at all levels with very flat thoracic spine, right iliac crest higher than the left, B knee valgus and some foot changes PT-OP-K Range of Motion Start: 11/18/21 10:51 Freq: Status: Active Protocol: Document 11/21/21 13:48 MB (Rec: 11/21/21 14:51 MB [id number]) Cervical Spine Range of Motion Cervical Spine Active Testing Position Standing Flexion 20 Extension 23 Rotation Left 40 Rotation Right 50 Lateral Flexion Left 25 Lateral Flexion Right 30 Shoulder Goniometric Range of Motion Shoulder Bilateral Shoulder ROM WFL Yes Testing Position Standing PT-OP-M Strength Start: 11/18/21 10:51 Freq: Status: Active Protocol: Document 11/21/21 13:48 MB (Rec: 11/21/21 14:51 MB [id number]) Shoulder Strength Shoulder Manual Muscle Testing Bilateral Flexion 5 Normal Abduction (C5) 5 Normal Elbow/Forearm Strength Elbow and Forearm Manual Muscle Testing Bilateral Flexion (C6) 5 Normal PT-OP-Q Treatments Start: 11/18/21 10:51 Freq: Status: Active Protocol: Document 12/27/21 10:32 SP (Rec: 12/27/21 11:27 SP [id number]) Manual Therapy Treatment Soft Tissue Mobilization cranium Body Location OVERCASTER, gentle temporalis Mobilization Type Myofascial Release,Sustained Pressure Intensity/Depth Superficial Body Position Supine Comments gentle light wt pressure cervical Body Location B SCM, LS, SOR, C paraspinals Mobilization Type Rolling,Sustained Pressure Intensity/Depth Moderate Body Position Supine Comments gentle manual PT-OP-R Modalities Start: 12/27/21 11:27 Freq: Status: Active Protocol: Document 12/27/21 10:32 SP (Rec: 12/27/21 11:29 SP [id number]) Hot Pack/Cold Pack Treatment cervical cold gel pack Location cervical Patient Position Hooklying Treatment Duration (minutes) 10 Patient Tolerance Good Comments decreased pain and tension PT-OP-T Assessment and Plan Start: 11/18/21 10:51 Freq: Status: Active Protocol: Document 12/27/21 10:32 SP (Rec: 12/27/21 11:27 SP [id number]) Physical Therapy Assessment Goals 2 Dog Licenser Goal (LTG) Pt will perform progressive HEP with I including pelvic realignment, breathing, self- massage, postural, and strengthening exercises to improve cervical ROM and pain by 01/19/22. LTG Duration 8 weeks 1 Dog Licenser Goal (LTG) Pt will report a 75% improvement in headaches and headache pain to improve quality of life by 01/19/22. 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 LTG Duration 8 weeks Assessment Summary Assessment Tx focused on light pressure manual and used cervical CP for migraine pain reduction. Pt responded well to tx, reported reducation in pain from 9/10 to 6/10 post manual, 5-6/10 post CP with awareness of nausea gone. Provided HO info on [employer] cervical gel pack can order similar used in tx for home assistance. Education on relaxed shlds, neck, jaw with decrease guarding and improved cervical ROM and improved arm swing post cuing when leaving. Physical Therapy Plan Frequency and Duration Frequency of Treatment 2x/Week Duration of Treatment 8 weeks Plan of Care Start Date 11/21/21 Plan of Care End Date 01/19/22 Therapeutic Interventions Therapeutic Interventions Home Exercise Program,Joint Mobilizations,Manual Therapy, Neuromuscular Re-education, Patient/Caregiver Education, Self-Care/Home Management,Soft Tissue Mobilization,Taping, Therapeutic Activities, Therapeutic Exercises Modalities Cold Pack/Ice Massage,Hot Packs Next Visit Focus/Plan Next Note Type Treatment Note Next Visit Plan Recheck response to last tx: Manual, CP for migraine assist . Next tx if able: added UBE, resisted scap retraction/ ER. POC: cont to work on postural stability & cehck neck ROM and use manual d
--- NOTE | 2021-12-30 11:22 | PT.OTN ---
Current Diagnoses Cervicogenic headache (12/30/21) Physical Therapy Treatment Note PT-OP-A Visit Information Start: 11/18/21 10:51 Freq: Status: Active Protocol: Document 12/30/21 10:33 SP (Rec: 12/30/21 11:32 SP [id number]) Out-Patient Physical Therapy Visit Information Visit Information Visit Type Treatment Note Visit Note PN and POC update due 01/19/22. Visit Start Time 10:33 Visit Stop Time 11:22 Total Visit Minutes 49 Visit Number 12 Number of ACCOUNTS PAYABLE TECHNICIAN Visits 3 Evaluation Information Evaluation Date 11/21/21 PT-OP-B Current Condition Start: 11/18/21 10:51 Freq: Status: Active Protocol: Document 11/21/21 13:48 MB (Rec: 11/21/21 14:05 MB [id number]) Current Condition History of Current Condition Onset Date [age] years Current Complaints Posterior headache pain History of Current Condition Pt states that she has had headaches since her teens. She was told they were migraines when she had her hysterectomy at age 28 years. The headaches did not get better after that . Pt states that her headaches go in cycles. When she gets them, she gets them constantly and then they stop. She does exercise at [employer]. She walks and runs. She changed her diet and she cut out flour. She tried cutting out caffeine and it did not make a change. She went to [facility] for pelvic floor therapy. The therapist did something for her neck and she got relief. Her PT encouraged her to return to her PCP and she got the referral to this clinic. Pt reports 8-9/10 posterior head and neck pain and 7/10 shoulder and 6/10 intrascapular pain. Pt reports that she gets light and noise sensitivity with headaches. She gets dizzy and nauseated. She has some migraine medicines that she takes when she can but she only gets so many. When she can go to bed, that makes a difference. She has tried ice packs. Pt has a BiPap and the doctor says her sleep is good. She tries to go to bed between 10- 1030 and wakes up about 0630. She has a puppy and now her sleeping schedule is off. Pt works part-time and she does retail. Pt starts out on her stomach and winds up on her back. She uses her BiPap in this position. Her mattress is firm. Pt goes to massage once a month. She wishes she could live there. She drinks a lot of water. She drinks 66 oz a day. She drinks 1.5 cup of caffeinated coffee in the morning and 1 cup of coffee in the afternoon. Right now, she is drinking 3 cups with the dog. Pt reports that occ, her eyes feel pressurized and she feels she is strangly. Pt states that her back pain is doing fine. PT-OP-C Subjective Start: 11/18/21 10:51 Freq: Status: Active Protocol: Document 12/30/21 10:33 SP (Rec: 12/30/21 11:32 SP [id number]) OP-PT Subjective Patient Comments Patient Comments Pt states doing much better wtih little annoyace in R UE/ shld arrival, but did have pain before went to bed, didn' t have to take any meds this am. PT-OP-J Posture/Palpation/Skin Start: 11/18/21 10:51 Freq: Status: Active Protocol: Document 11/21/21 13:48 MB (Rec: 11/21/21 14:51 MB [id number]) Posture Evaluation Comments Posture Comments Standing posture without shoes : left AC joint is 1 in front of left tragus, left shoulder is about 1 higher than the left and pt is left hand dominant. Mild Dowager's hump and decreased normal curvature of spine at all levels with very flat thoracic spine, right iliac crest higher than the left, B knee valgus and some foot changes PT-OP-K Range of Motion Start: 11/18/21 10:51 Freq: Status: Active Protocol: Document 11/21/21 13:48 MB (Rec: 11/21/21 14:51 MB [id number]) Cervical Spine Range of Motion Cervical Spine Active Testing Position Standing Flexion 20 Extension 23 Rotation Left 40 Rotation Right 50 Lateral Flexion Left 25 Lateral Flexion Right 30 Shoulder Goniometric Range of Motion Shoulder Bilateral Shoulder ROM WFL Yes Testing Position Standing PT-OP-M Strength Start: 11/18/21 10:51 Freq: Status: Active Protocol: Document 11/21/21 13:48 MB (Rec: 11/21/21 14:51 MB [id number]) Shoulder Strength Shoulder Manual Muscle Testing Bilateral Flexion 5 Normal Abduction (C5) 5 Normal Elbow/Forearm Strength Elbow and Forearm Manual Muscle Testing Bilateral Flexion (C6) 5 Normal PT-OP-Q Treatments Start: 11/18/21 10:51 Freq: Status: Active Protocol: Document 12/30/21 10:33 SP (Rec: 12/30/21 11:32 SP [id number]) Cardio Equipment Upper Body Ergometer (UBE) Duration (Minutes) 6 RPM 120 Seat Position see 11 Height 2.25 Other feel like has to pull more on R than L, ok on neck. Therapeutic Exercises Standing Exercises resisted rows Standing Exercise Name review HEP Side bilateral Resistance TB #1 Reps/Minutes x20 Comments improved form, no UT recruitment shld ext Standing Exercise Name review HEP Side bilateral Resistance TB #1 Reps/Minutes x20 Comments improved form, no UT recruitment Posture at the wall Standing Exercise Name wall roll ups progressed to w/ shoulder ext w/palms fwd then 90/90 Habd Side bilateral Equipment Used improved Reps/Minutes 5 min Comments cued TA, scap depression, post head on wall Other Exercises bird dog Other Exercise Name added to HEP Side bilateral Resistance foot slide then lift if stable Reps/Minutes x5 Comments challenged lift LLE, cued slide ext core/R scap stable then lift if able quadruped Other Exercise Name cat/ camel, cervical ext neutral Resistance reviewed HEP Reps/Minutes x8 Comments good response cat/ camel, cued cS neutral ext, Manual Therapy Treatment Soft Tissue Mobilization cervical Body Location B LS, SOR, UT Mobilization Type Myofascial Release,Sustained Pressure Intensity/Depth Moderate Body Position Supine Comments gentle manual Joint Mobilizations thoracic Direction PA Grade II Body Position Hooklying Comments T8-T2 PT-OP-R Modalities Start: 12/27/21 11:27 Freq: Status: Active Protocol: Document 12/27/21 10:32 SP (Rec: 12/27/21 11:29 SP [id number]) Hot Pack/Cold Pack Treatment cervical cold gel pack Location cervical Patient Position Hooklying Treatment Duration (minutes) 10 Patient Tolerance Good Comments decreased pain and tension PT-OP-T Assessment and Plan Start: 11/18/21 10:51 Freq: Status: Active Protocol: Document 12/30/21 10:33 SP (Rec: 12/30/21 11:32 SP [id number]) Physical Therapy Assessment Goals 2 Intermediate Goal (LTG) Pt will perform progressive HEP with I including pelvic realignment, breathing, self- massage, postural, and strengthening exercises to improve cervical ROM and pain by 01/19/22. LTG Duration 8 weeks 1 Stock Puller Goal (LTG) Pt will report a 75% improvement in headaches and headache pain to improve quality of life by 01/19/22. 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 LTG Duration 8 weeks Assessment Summary Assessment Pt required decrease resistance using UBE for decrease UT recruitment, cued posture. HEP review: cued tongue on roof mouth decrease UT, anterior neck recruitment during therex with decrease head tension. Extra time spent wall roll ups with improved understanding and self corrections of TA and not over recruitment UT, neck musculature. Initiated bird dog with challenge RUE/ RLE stance stability, improved post cues for slide contact floor and lift if core/ hip abd/ scap complex fac success. Provided hand outs. Physical Therapy Plan Frequency and Duration Frequency of Treatment 2x/Week Duration of Treatment 8 weeks Plan of Care Start Date 11/21/21 Plan of Care End Date 01/19/22 Therapeutic Interventions Therapeutic Interventions Home Exercise Program,Joint Mobilizations,Manual Therapy, Neuromuscular Re-education, Patient/Caregiver Education, Self-Care/Home Management,Soft Tissue Mobilization,Taping, Therapeutic Activities, Therapeutic Exercises Modalities Cold Pack/Ice Massage,Hot Packs Next Visit Focus/Plan Next Note Type Treatment Note Next Visit Plan Recheck response to last tx: bird dog, wall roll up. Response to UBE Next tx if able: Continue UBE warm up. Add neck ROM, tongue roof mouth helps. POC: cont to work on postural stability & cehck neck ROM and use manual
--- NOTE | 2022-01-03 12:24 | PT.OTN ---
Current Diagnoses Cervicogenic headache (01/03/22) Physical Therapy Treatment Note PT-OP-A Visit Information Start: 11/18/21 10:51 Freq: Status: Active Protocol: Document 01/03/22 10:37 [facility] (Rec: 01/03/22 12:24 [facility] [id number]) Out-Patient Physical Therapy Visit Information Visit Information Visit Type Treatment Note Visit Start Time 10:37 Visit Stop Time 11:16 Total Visit Minutes 39 Visit Number 13 Number of UNDERWATER TRAPPER Visits 0 PT-OP-B Current Condition Start: 11/18/21 10:51 Freq: Status: Active Protocol: Document 11/21/21 13:48 MB (Rec: 11/21/21 14:05 MB [id number]) Current Condition History of Current Condition Onset Date [age] years Current Complaints Posterior headache pain History of Current Condition Pt states that she has had headaches since her teens. She was told they were migraines when she had her hysterectomy at age 28 years. The headaches did not get better after that . Pt states that her headaches go in cycles. When she gets them, she gets them constantly and then they stop. She does exercise at [email or web address]. She walks and runs. She changed her diet and she cut out flour. She tried cutting out caffeine and it did not make a change. She went to [facility] for pelvic floor therapy. The therapist did something for her neck and she got relief. Her PT encouraged her to return to her PCP and she got the referral to this clinic. Pt reports 8-9/10 posterior head and neck pain and 7/10 shoulder and 6/10 intrascapular pain. Pt reports that she gets light and noise sensitivity with headaches. She gets dizzy and nauseated. She has some migraine medicines that she takes when she can but she only gets so many. When she can go to bed, that makes a difference. She has tried ice packs. Pt has a BiPap and the doctor says her sleep is good. She tries to go to bed between 10- 1030 and wakes up about 0630. She has a puppy and now her sleeping schedule is off. Pt works part-time and she does retail. Pt starts out on her stomach and winds up on her back. She uses her BiPap in this position. Her mattress is firm. Pt goes to massage once a month. She wishes she could live there. She drinks a lot of water. She drinks 66 oz a day. She drinks 1.5 cup of caffeinated coffee in the morning and 1 cup of coffee in the afternoon. Right now, she is drinking 3 cups with the dog. Pt reports that occ, her eyes feel pressurized and she feels she is strangly. Pt states that her back pain is doing fine. PT-OP-C Subjective Start: 11/18/21 10:51 Freq: Status: Active Protocol: Document 01/03/22 10:37 LR (Rec: 01/03/22 12:24 [facility] [id number]) OP-PT Subjective Patient Comments Patient Comments Pt reprots pain up/down. Last time rayna was in a lot of pain. Today okay. Feels like therapy is helping. She has questions w/wall exercise. PT-OP-J Posture/Palpation/Skin Start: 11/18/21 10:51 Freq: Status: Active Protocol: Document 11/21/21 13:48 MB (Rec: 11/21/21 14:51 MB [id number]) Posture Evaluation Comments Posture Comments Standing posture without shoes : left AC joint is 1 in front of left tragus, left shoulder is about 1 higher than the left and pt is left hand dominant. Mild Dowager's hump and decreased normal curvature of spine at all levels with very flat thoracic spine, right iliac crest higher than the left, B knee valgus and some foot changes PT-OP-K Range of Motion Start: 11/18/21 10:51 Freq: Status: Active Protocol: Document 11/21/21 13:48 MB (Rec: 11/21/21 14:51 MB [id number]) Cervical Spine Range of Motion Cervical Spine Active Testing Position Standing Flexion 20 Extension 23 Rotation Left 40 Rotation Right 50 Lateral Flexion Left 25 Lateral Flexion Right 30 Shoulder Goniometric Range of Motion Shoulder Bilateral Shoulder ROM WFL Yes Testing Position Standing PT-OP-M Strength Start: 11/18/21 10:51 Freq: Status: Active Protocol: Document 11/21/21 13:48 MB (Rec: 11/21/21 14:51 MB [id number]) Shoulder Strength Shoulder Manual Muscle Testing Bilateral Flexion 5 Normal Abduction (C5) 5 Normal Elbow/Forearm Strength Elbow and Forearm Manual Muscle Testing Bilateral Flexion (C6) 5 Normal PT-OP-Q Treatments Start: 11/18/21 10:51 Freq: Status: Active Protocol: Document 01/03/22 10:37 [facility] (Rec: 01/03/22 12:24 [facility] [id number]) Therapeutic Exercises Standing Exercises resisted scap retraction Standing Exercise Name no resistance just scap retract w/depression Side bilateral Reps/Minutes 10 Posture at the wall Standing Exercise Name wall roll ups progressed to w/ shoulder ext w/palms fwd then 90/90 Habd Side bilateral Equipment Used improved Reps/Minutes 6 min Comments cued TA, scap depression, post head on wall Other Exercises bird dog Other Exercise Name max cues fro neutral at scap & abdomen engagment Side bilateral Reps/Minutes 6 ea Comments LLE lift only d/t pt difficulty keeping pelvis stable and no UT engagment Manual Therapy Treatment Soft Tissue Mobilization post Body Location L lat Mobilization Type Strumming Intensity/Depth Moderate Body Position Sidelying Comments w/post dep cervical Body Location L LS, UT, Scalenes & SCM Mobilization Type Rolling,Strumming,Sustained Pressure Intensity/Depth Moderate Body Position Sidelying Comments w/post dep Joint Mobilizations ribs Comments Rib 6 PA R & depression thoracic Comments T6 &7 transverse R and UPA L FM PT-OP-R Modalities Start: 12/27/21 11:27 Freq: Status: Active Protocol: Document 12/27/21 10:32 SP (Rec: 12/27/21 11:29 SP [id number]) Hot Pack/Cold Pack Treatment cervical cold gel pack Location cervical Patient Position Hooklying Treatment Duration (minutes) 10 Patient Tolerance Good Comments decreased pain and tension PT-OP-T Assessment and Plan Start: 11/18/21 10:51 Freq: Status: Active Protocol: Document 01/03/22 10:37 [facility] (Rec: 01/03/22 12:24 [facility] [id number]) Physical Therapy Assessment Goals 2 Nephrology Nurse Goal (LTG) Pt will perform progressive HEP with I including pelvic realignment, breathing, self- massage, postural, and strengthening exercises to improve cervical ROM and pain by 01/19/22. LTG Duration 8 weeks 1 Chcf Goal (LTG) Pt will report a 75% improvement in headaches and headache pain to improve quality of life by 01/19/22. 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 LTG Duration 8 weeks Assessment Summary Assessment Pt required a lot of cues for wall roll up so she took a video fo PT doing exercise to help her at home. After cues, pt did well with this. She has inc UT recruitment in quadruped and after PNF to work on ability for post dep of L ,s he had less UE recruitment and was able to get good retract w/depression of scap. She required a lot of cues to keep for tipping in quadruped exercise. Physical Therapy Plan Frequency and Duration Frequency of Treatment 2x/Week Duration of Treatment 8 weeks Plan of Care Start Date 11/21/21 Plan of Care End Date 01/19/22 Next Visit Focus/Plan Next Note Type Progress Note Next Visit Plan add neck ROM, review bird dog and wall roll up, manual to improve scap mobility and improve ability to relax UT, PNF
--- NOTE | 2022-01-11 19:02 | PT.OTN ---
Current Diagnoses Cervicogenic headache (01/11/22) Physical Therapy Treatment Note PT-OP-A Visit Information Start: 11/18/21 10:51 Freq: Status: Active Protocol: Document 01/11/22 13:49 [facility] (Rec: 01/11/22 15:17 [facility] [id number]) Out-Patient Physical Therapy Visit Information Visit Information Visit Type Progress Note Visit Start Time 13:48 Visit Stop Time 14:32 Total Visit Minutes 44 Visit Number Number of LENS GRINDING MACHINE OPERATOR Visits 0 PT-OP-B Current Condition Start: 11/18/21 10:51 Freq: Status: Active Protocol: Document 11/21/21 13:48 MB (Rec: 11/21/21 14:05 MB [id number]) Current Condition History of Current Condition Onset Date [age] years Current Complaints Posterior headache pain History of Current Condition Pt states that she has had headaches since her teens. She was told they were migraines when she had her hysterectomy at age 28 years. The headaches did not get better after that . Pt states that her headaches go in cycles. When she gets them, she gets them constantly and then they stop. She does exercise at [employer]. She walks and runs. She changed her diet and she cut out flour. She tried cutting out caffeine and it did not make a change. She went to [facility] for pelvic floor therapy. The therapist did something for her neck and she got relief. Her PT encouraged her to return to her PCP and she got the referral to this clinic. Pt reports 8-9/10 posterior head and neck pain and 7/10 shoulder and 6/10 intrascapular pain. Pt reports that she gets light and noise sensitivity with headaches. She gets dizzy and nauseated. She has some migraine medicines that she takes when she can but she only gets so many. When she can go to bed, that makes a difference. She has tried ice packs. Pt has a BiPap and the doctor says her sleep is good. She tries to go to bed between 10- 1030 and wakes up about 0630. She has a puppy and now her sleeping schedule is off. Pt works part-time and she does retail. Pt starts out on her stomach and winds up on her back. She uses her BiPap in this position. Her mattress is firm. Pt goes to massage once a month. She wishes she could live there. She drinks a lot of water. She drinks 66 oz a day. She drinks 1.5 cup of caffeinated coffee in the morning and 1 cup of coffee in the afternoon. Right now, she is drinking 3 cups with the dog. Pt reports that occ, her eyes feel pressurized and she feels she is strangly. Pt states that her back pain is doing fine. PT-OP-C Subjective Start: 11/18/21 10:51 Freq: Status: Active Protocol: Document 01/11/22 13:49 [facility] (Rec: 01/11/22 15:17 [facility] [id number]) OP-PT Subjective Patient Comments Patient Comments Pt reports she felt a lot better after last session and she got her cold pack for home which is helpful PT-OP-J Posture/Palpation/Skin Start: 11/18/21 10:51 Freq: Status: Active Protocol: Document 01/11/22 13:49 [facility] (Rec: 01/11/22 15:17 [facility] [id number]) Posture Evaluation [facility] Postural Classification System Elbow Flexion Test 0 PT-OP-K Range of Motion Start: 11/18/21 10:51 Freq: Status: Active Protocol: Document 01/11/22 13:49 [facility] (Rec: 01/11/22 15:17 [facility] [id number]) Cervical Spine Range of Motion Cervical Spine Active Testing Position Standing Flexion 43 Extension 47 Rotation Left 40 Rotation Right 50 Lateral Flexion Left 28 Lateral Flexion Right 45 Comments tight w/flex; SB feels on R side w/both directions, PT-OP-M Strength Start: 11/18/21 10:51 Freq: Status: Active Protocol: Document 01/11/22 13:49 [facility] (Rec: 01/11/22 15:17 [facility] [id number]) Shoulder Strength Shoulder Manual Muscle Testing Right Flexion 5 Normal Extension 4+ Good+ Abduction (C5) 5 Normal External Rotation 4 Good Internal Rotation 4+ Good+ Comments feels in neck w/flex Left Flexion 5 Normal Abduction (C5) 5 Normal External Rotation 4- Good- Internal Rotation 4- Good- PT-OP-Q Treatments Start: 11/18/21 10:51 Freq: Status: Active Protocol: Document 01/11/22 13:49 [facility] (Rec: 01/11/22 15:17 [facility] [id number]) Manual Therapy Treatment Soft Tissue Mobilization post Body Location L lat Mobilization Type Strumming Intensity/Depth Moderate Body Position Sidelying Comments w/post dep cervical Body Location L LS, UT, Scalenes Mobilization Type Rolling,Strumming,Sustained Pressure Intensity/Depth Moderate Body Position Sidelying Comments w/post dep Joint Mobilizations thoracic Comments 1. T5-6 transverse R FM in s/l 2. T7-8 transverse R FM in sitting Neuro Re-Education Treatment Other Activities PNF Comments 1. L scap post depression rhythmic initation progressed to sustained holds progressed to COI progresed to holds w/ modified pivot prone 2. post depression L scap and L ant elevation pelvis sustained holds for running progressed to COI Self-Care/Home Management Treatment Education Other Education start jogging w/walk 10 min then 10 min of 1 min jog & 1 min walk then walk the rest of the walk after; she can gradually inc how long she is doing the jog/walk time as long as she feels no neck pain or tension w/running; discussion of progress w/PT and pt goals for further improvement; edu for pics of how she sets up fro sleep Activities Self-Care/Home Management Activities work on scap retraction w/ running motion w/o elevation of shoulder blade x3 min; work on shoulder setting w/pivot prone x2 min PT-OP-R Modalities Start: 12/27/21 11:27 Freq: Status: Active Protocol: Document 12/27/21 10:32 [facility] (Rec: 12/27/21 11:29 SP [id number]) Hot Pack/Cold Pack Treatment cervical cold gel pack Location cervical Patient Position Hooklying Treatment Duration (minutes) 10 Patient Tolerance Good Comments decreased pain and tension PT-OP-T Assessment and Plan Start: 11/18/21 10:51 Freq: Status: Active Protocol: Document 01/11/22 13:49 [facility] (Rec: 01/11/22 15:17 [facility] [id number]) Physical Therapy Assessment Goals activity Short Term Goal (STG) Pt will be able to sleep through the night without pain awaking her. 01/11-1-2x/a night currently 4/ 5 nights wakes up STG Duration 02/11/22 Halfway Goal (LTG) Pt return to working out including running and EFT. LTG Duration 03/13/22 2 Halfway Goal (LTG) Pt will perform progressive HEP with I including pelvic realignment, breathing, self- massage, postural, and strengthening exercises to improve cervical ROM and pain by 01/19/22. 01/11-improved performance, still requires cues w/some exercises LTG Duration 02/11/22 1 Private Equity Analyst Goal (LTG) Pt will report a 75% improvement in headaches and headache pain to improve quality of life by 01/19/22. 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 01/11: Pt reports she feels like she can function a lot better. At least 40% better and is taking less medication LTG Duration 8 weeks Assessment Summary Assessment Pt is makng good progress with PT with notable dec neck pain and FERMIN and pt noting she has had improved ability to function overall. She has improved cervical ROM significantly and UE strength is overall good but she shows dec scap control especially on L side which likely affects cervical pain. Pt would benefit from cont PT to work on these deficits. Physical Therapy Plan Frequency and Duration Frequency of Treatment 1x/Week Duration of Treatment 2 months Plan of Care Start Date 01/11/22 Plan of Care End Date 03/13/22 Therapeutic Interventions Therapeutic Interventions Gait Training,Home Exercise Program,Joint Mobilizations, Manual Therapy,Neuromuscular Re-education,Patient/Caregiver Education,Self-Care/Home Management,Soft Tissue Mobilization,Taping, Therapeutic Activities, Therapeutic Exercises Modalities Cold Pack/Ice Massage,Hot Packs Next Visit Focus/Plan Next Note Type Treatment Note Next Visit Plan reivew bird dog & wall posture , prone prop to work on L scap depression
--- NOTE | 2022-01-11 19:02 | PT.OPPOC ---
Physical, Occupational & Speech Therapy At [facility] Current Diagnoses Cervicogenic headache (01/11/22) Visit Care Team Role Provider Type Brennon Pike MD Attending Provider Physician Family Provider Primary Care Provider Referring Provider Specialty: Internal Medicine Address: [address] [place] [address], [address], [address] Email: [email or web address] Plan Of Care PT-OP-T Assessment and Plan Start: 11/18/21 10:51 Freq: Status: Active Protocol: Document 01/11/22 13:49 [facility] (Rec: 01/11/22 15:17 [facility] [id number]) Physical Therapy Assessment Goals activity Short Term Goal (STG) Pt will be able to sleep through the night without pain awaking her. 01/11-1-2x/a night currently 4/ 5 nights wakes up STG Duration 02/11/22 Assisted Goal (LTG) Pt return to working out including running and EFT. LTG Duration 03/13/22 2 Financial Systems Manager Goal (LTG) Pt will perform progressive HEP with I including pelvic realignment, breathing, self- massage, postural, and strengthening exercises to improve cervical ROM and pain by 01/19/22. 01/11-improved performance, still requires cues w/some exercises LTG Duration 02/11/22 1 Financial Systems Manager Goal (LTG) Pt will report a 75% improvement in headaches and headache pain to improve quality of life by 01/19/22. 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 01/11: Pt reports she feels like she can function a lot better. At least 40% better and is taking less medication LTG Duration 8 weeks Assessment Summary Assessment Pt is makng good progress with PT with notable dec neck pain and FERMIN and pt noting she has had improved ability to function overall. She has improved cervical ROM significantly and UE strength is overall good but she shows dec scap control especially on L side which likely affects cervical pain. Pt would benefit from cont PT to work on these deficits. Physical Therapy Plan Frequency and Duration Frequency of Treatment 1x/Week Duration of Treatment 2 months Plan of Care Start Date 01/11/22 Plan of Care End Date 03/13/22 Therapeutic Interventions Therapeutic Interventions Gait Training,Home Exercise Program,Joint Mobilizations, Manual Therapy,Neuromuscular Re-education,Patient/Caregiver Education,Self-Care/Home Management,Soft Tissue Mobilization,Taping, Therapeutic Activities, Therapeutic Exercises Modalities Cold Pack/Ice Massage,Hot Packs Next Visit Focus/Plan Next Note Type Treatment Note Next Visit Plan reivew bird dog & wall posture , prone prop to work on L scap depression Plan of Care Dates Plan of Care Start Date 01/11/22 Plan of Care End Date 03/13/22 Electronically Signed by: Aileen Ang, PT 01/11/22 4820 Please Sign and Return: I have reviewed this Plan of Care and certify that the skilled therapy services above are required to meet the patient?s needs. Physician Signature Date Printed Name and Credentials Clinical Instructor Signature Printed Name and Credentials
--- NOTE | 2022-01-24 10:26 | PT.OTN ---
Current Diagnoses Cervicogenic headache (01/24/22) Physical Therapy Treatment Note PT-OP-A Visit Information Start: 11/18/21 10:51 Freq: Status: Active Protocol: Document 01/24/22 08:16 [facility] (Rec: 01/24/22 10:26 [facility] [id number]) Out-Patient Physical Therapy Visit Information Visit Information Visit Type Treatment Note Visit Start Time 08:15 Visit Stop Time 09:00 Total Visit Minutes 45 Visit Number Number of CREATIVE SERVICES DESIGNER Visits 0 PT-OP-B Current Condition Start: 11/18/21 10:51 Freq: Status: Active Protocol: Document 11/21/21 13:48 MB (Rec: 11/21/21 14:05 MB [id number]) Current Condition History of Current Condition Onset Date [age] years Current Complaints Posterior headache pain History of Current Condition Pt states that she has had headaches since her teens. She was told they were migraines when she had her hysterectomy at age 28 years. The headaches did not get better after that . Pt states that her headaches go in cycles. When she gets them, she gets them constantly and then they stop. She does exercise at [employer]. She walks and runs. She changed her diet and she cut out flour. She tried cutting out caffeine and it did not make a change. She went to [facility] for pelvic floor therapy. The therapist did something for her neck and she got relief. Her PT encouraged her to return to her PCP and she got the referral to this clinic. Pt reports 8-9/10 posterior head and neck pain and 7/10 shoulder and 6/10 intrascapular pain. Pt reports that she gets light and noise sensitivity with headaches. She gets dizzy and nauseated. She has some migraine medicines that she takes when she can but she only gets so many. When she can go to bed, that makes a difference. She has tried ice packs. Pt has a BiPap and the doctor says her sleep is good. She tries to go to bed between 10- 1030 and wakes up about 0630. She has a puppy and now her sleeping schedule is off. Pt works part-time and she does retail. Pt starts out on her stomach and winds up on her back. She uses her BiPap in this position. Her mattress is firm. Pt goes to massage once a month. She wishes she could live there. She drinks a lot of water. She drinks 66 oz a day. She drinks 1.5 cup of caffeinated coffee in the morning and 1 cup of coffee in the afternoon. Right now, she is drinking 3 cups with the dog. Pt reports that occ, her eyes feel pressurized and she feels she is strangly. Pt states that her back pain is doing fine. PT-OP-C Subjective Start: 11/18/21 10:51 Freq: Status: Active Protocol: Document 01/24/22 08:16 [facility] (Rec: 01/24/22 10:26 [facility] [id number]) OP-PT Subjective Patient Comments Patient Comments Pt reports she has 50% of good days and her bad days are mostly not as bad as they used to be. Notes LB is irritated like it was in past but unsure why. Started about the day after last PT session so has not tried running has just been walking and doing light exercise PT-OP-J Posture/Palpation/Skin Start: 11/18/21 10:51 Freq: Status: Active Protocol: Document 01/11/22 13:49 [facility] (Rec: 01/11/22 15:17 [facility] [id number]) Posture Evaluation [facility] Postural Classification System Elbow Flexion Test 0 PT-OP-K Range of Motion Start: 11/18/21 10:51 Freq: Status: Active Protocol: Document 01/11/22 13:49 [facility] (Rec: 01/11/22 15:17 [facility] [id number]) Cervical Spine Range of Motion Cervical Spine Active Testing Position Standing Flexion 43 Extension 47 Rotation Left 40 Rotation Right 50 Lateral Flexion Left 28 Lateral Flexion Right 45 Comments tight w/flex; SB feels on R side w/both directions, PT-OP-M Strength Start: 11/18/21 10:51 Freq: Status: Active Protocol: Document 01/11/22 13:49 [facility] (Rec: 01/11/22 15:17 [facility] [id number]) Shoulder Strength Shoulder Manual Muscle Testing Right Flexion 5 Normal Extension 4+ Good+ Abduction (C5) 5 Normal External Rotation 4 Good Internal Rotation 4+ Good+ Comments feels in neck w/flex Left Flexion 5 Normal Abduction (C5) 5 Normal External Rotation 4- Good- Internal Rotation 4- Good- PT-OP-Q Treatments Start: 11/18/21 10:51 Freq: Status: Active Protocol: Document 01/24/22 08:16 [facility] (Rec: 01/24/22 10:26 [facility] [id number]) Therapeutic Exercises Standing Exercises Posture at the wall Standing Exercise Name wall roll ups progressed to w/ shoulder ext w/palms fwd then 90/90 Habd Side bilateral Equipment Used improved Reps/Minutes 4 min Comments cued TA, scap depression, post head on wall Other Exercises bird dog Other Exercise Name mod cues fro neutral at scap & abdomen engagment Side bilateral Reps/Minutes 5 ea Comments 1. LLE lift 2. bird dog Manual Therapy Treatment Soft Tissue Mobilization post Body Location L lat Mobilization Type Strumming Intensity/Depth Moderate Body Position Sidelying Comments w/post dep cervical Body Location B LS, UT, Scalenes, SCM & SO Mobilization Type Rolling,Strumming,Sustained Pressure Intensity/Depth Moderate Body Position Supine Joint Mobilizations cervical Comments 1. C4-5 transverse glide L & UAP R FM ribs Comments 1st rib L caudal Self-Care/Home Management Treatment Education Other Education encouraged pt to keep pain journal to see what seems to be causing pain, edu for pt to make sure upper cervical is not in ext and showed how to use towel under to prop head more PT-OP-R Modalities Start: 12/27/21 11:27 Freq: Status: Active Protocol: Document 12/27/21 10:32 SP (Rec: 12/27/21 11:29 SP [id number]) Hot Pack/Cold Pack Treatment cervical cold gel pack Location cervical Patient Position Hooklying Treatment Duration (minutes) 10 Patient Tolerance Good Comments decreased pain and tension PT-OP-T Assessment and Plan Start: 11/18/21 10:51 Freq: Status: Active Protocol: Document 01/24/22 08:16 [facility] (Rec: 01/24/22 10:26 [facility] [id number]) Physical Therapy Assessment Goals activity Short Term Goal (STG) Pt will be able to sleep through the night without pain awaking her. 01/11-1-2x/a night currently 4/ 5 nights wakes up STG Duration 02/11/22 Fdc Goal (LTG) Pt return to working out including running and EFT. LTG Duration 03/13/22 2 Staff Development Coordinator Rn Goal (LTG) Pt will perform progressive HEP with I including pelvic realignment, breathing, self- massage, postural, and strengthening exercises to improve cervical ROM and pain by 3/24/22. 01/11-improved performance, still requires cues w/some exercises LTG Duration 02/11/22 1 Staff Development Coordinator Rn Goal (LTG) Pt will report a 75% improvement in headaches and headache pain to improve quality of life by 01/19/22. 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 01/11: Pt reports she feels like she can function a lot better. At least 40% better and is taking less medication LTG Duration 8 weeks Assessment Summary Assessment Pt did better with exercises and showed understanding w/ sleep position.I mproved SB B and dec pain w/B SBand rot w/ manual treatment. Physical Therapy Plan Frequency and Duration Frequency of Treatment 1x/Week Duration of Treatment 2 months Plan of Care Start Date 01/11/22 Plan of Care End Date 03/13/22 Next Visit Focus/Plan Next Note Type Treatment Note Next Visit Plan prone prop to work on L scap dep, work on chin tuck lift, assess pt pain journal
--- NOTE | 2022-02-14 10:32 | PT.OTN ---
Current Diagnoses Cervicogenic headache (02/14/22) Physical Therapy Treatment Note PT-OP-A Visit Information Start: 11/18/21 10:51 Freq: Status: Active Protocol: Document 02/14/22 09:31 [facility] (Rec: 02/14/22 10:32 [facility] [id number]) Out-Patient Physical Therapy Visit Information Visit Information Visit Type Treatment Note Visit Start Time 09:45 Visit Stop Time 10:27 Total Visit Minutes 42 Visit Number Number of BENZENE WORKER Visits 0 PT-OP-B Current Condition Start: 11/18/21 10:51 Freq: Status: Active Protocol: Document 11/21/21 13:48 [facility] (Rec: 11/21/21 14:05 MB [id number]) Current Condition History of Current Condition Onset Date [age] years Current Complaints Posterior headache pain History of Current Condition Pt states that she has had headaches since her teens. She was told they were migraines when she had her hysterectomy at age 28 years. The headaches did not get better after that . Pt states that her headaches go in cycles. When she gets them, she gets them constantly and then they stop. She does exercise at [employer]. She walks and runs. She changed her diet and she cut out flour. She tried cutting out caffeine and it did not make a change. She went to [facility] for pelvic floor therapy. The therapist did something for her neck and she got relief. Her PT encouraged her to return to her PCP and she got the referral to this clinic. Pt reports 8-9/10 posterior head and neck pain and 7/10 shoulder and 6/10 intrascapular pain. Pt reports that she gets light and noise sensitivity with headaches. She gets dizzy and nauseated. She has some migraine medicines that she takes when she can but she only gets so many. When she can go to bed, that makes a difference. She has tried ice packs. Pt has a BiPap and the doctor says her sleep is good. She tries to go to bed between 10- 1030 and wakes up about 0630. She has a puppy and now her sleeping schedule is off. Pt works part-time and she does retail. Pt starts out on her stomach and winds up on her back. She uses her BiPap in this position. Her mattress is firm. Pt goes to massage once a month. She wishes she could live there. She drinks a lot of water. She drinks 66 oz a day. She drinks 1.5 cup of caffeinated coffee in the morning and 1 cup of coffee in the afternoon. Right now, she is drinking 3 cups with the dog. Pt reports that occ, her eyes feel pressurized and she feels she is strangly. Pt states that her back pain is doing fine. PT-OP-C Subjective Start: 11/18/21 10:51 Freq: Status: Active Protocol: Document 02/14/22 09:31 [facility] (Rec: 02/14/22 10:32 [facility] [id number]) OP-PT Subjective Patient Comments Patient Comments Pt reports she is still fatigued from having COVID. She wasn't sleeping well which make tightness kind of tough. REports she felt really foggy and was happy to be coming today d/t noting feeling tight . PT-OP-J Posture/Palpation/Skin Start: 11/18/21 10:51 Freq: Status: Active Protocol: Document 01/11/22 13:49 [facility] (Rec: 01/11/22 15:17 [facility] [id number]) Posture Evaluation [facility] Postural Classification System Elbow Flexion Test 0 PT-OP-K Range of Motion Start: 11/18/21 10:51 Freq: Status: Active Protocol: Document 01/11/22 13:49 [facility] (Rec: 01/11/22 15:17 [facility] [id number]) Cervical Spine Range of Motion Cervical Spine Active Testing Position Standing Flexion 43 Extension 47 Rotation Left 40 Rotation Right 50 Lateral Flexion Left 28 Lateral Flexion Right 45 Comments tight w/flex; SB feels on R side w/both directions, PT-OP-M Strength Start: 11/18/21 10:51 Freq: Status: Active Protocol: Document 01/11/22 13:49 [facility] (Rec: 01/11/22 15:17 [facility] [id number]) Shoulder Strength Shoulder Manual Muscle Testing Right Flexion 5 Normal Extension 4+ Good+ Abduction (C5) 5 Normal External Rotation 4 Good Internal Rotation 4+ Good+ Comments feels in neck w/flex Left Flexion 5 Normal Abduction (C5) 5 Normal External Rotation 4- Good- Internal Rotation 4- Good- PT-OP-Q Treatments Start: 11/18/21 10:51 Freq: Status: Active Protocol: Document 02/14/22 09:31 [facility] (Rec: 02/14/22 10:32 [facility] [id number]) Manual Therapy Treatment Soft Tissue Mobilization cranium Mobilization Type Myofascial Release,Sustained Pressure Intensity/Depth Superficial Body Position Supine cervical Body Location B LS, UT, Scalenes, SCM & SO Mobilization Type Rolling,Strumming,Sustained Pressure Intensity/Depth Moderate Comments seated and supine w/SB Joint Mobilizations cervical Comments 1. C1 UAP L 2. C2 UAP R FM & transverse glide L 3. C 7 UAP R 4. transverse glide L C3, C5-6 Self-Care/Home Management Treatment Education Other Education edu to slowly progress back to exercises including walking/ running PT-OP-R Modalities Start: 12/27/21 11:27 Freq: Status: Active Protocol: Document 12/27/21 10:32 [facility] (Rec: 12/27/21 11:29 [facility] [id number]) Hot Pack/Cold Pack Treatment cervical cold gel pack Location cervical Patient Position Hooklying Treatment Duration (minutes) 10 Patient Tolerance Good Comments decreased pain and tension PT-OP-T Assessment and Plan Start: 11/18/21 10:51 Freq: Status: Active Protocol: Document 02/14/22 09:31 [facility] (Rec: 02/14/22 10:32 [facility] [id number]) Physical Therapy Assessment Goals activity Short Term Goal (STG) Pt will be able to sleep through the night without pain awaking her. 01/11-1-2x/a night currently 4/ 5 nights wakes up STG Duration 02/11/22 Lard Maker Goal (LTG) Pt return to working out including running and EFT. LTG Duration 03/13/22 2 Lard Maker Goal (LTG) Pt will perform progressive HEP with I including pelvic realignment, breathing, self- massage, postural, and strengthening exercises to improve cervical ROM and pain by 01/19/22. 01/11-improved performance, still requires cues w/some exercises LTG Duration 02/11/22 1 Lard Maker Goal (LTG) Pt will report a 75% improvement in headaches and headache pain to improve quality of life by 01/19/22. 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 01/11: Pt reports she feels like she can function a lot better. At least 40% better and is taking less medication LTG Duration 8 weeks Assessment Summary Assessment Discomfort w/SB and rotations B prior to session but after session no pain w/ROM and full PROM and mild limit of 80% AROM B rotations. Good flex and ext at end w/o pain Physical Therapy Plan Frequency and Duration Frequency of Treatment 1x/Week Duration of Treatment 2 months Plan of Care Start Date 01/11/22 Plan of Care End Date 03/13/22 Next Visit Focus/Plan Next Note Type Progress Note Next Visit Plan assess pt progress and determine if ready for DC
--- NOTE | 2022-02-28 14:26 | PT.OTN ---
Current Diagnoses Cervicogenic headache (02/28/22) Physical Therapy Treatment Note PT-OP-A Visit Information Start: 11/18/21 10:51 Freq: Status: Active Protocol: Document 02/28/22 09:50 [facility] (Rec: 02/28/22 10:36 [facility] [id number]) Out-Patient Physical Therapy Visit Information Visit Information Visit Type Progress Note Visit Start Time 09:50 Visit Stop Time 10:30 Total Visit Minutes 40 Visit Number Number of DIE FITTER Visits 0 PT-OP-B Current Condition Start: 11/18/21 10:51 Freq: Status: Active Protocol: Document 11/21/21 13:48 [facility] (Rec: 11/21/21 14:05 [facility] [id number]) Current Condition History of Current Condition Onset Date [age] years Current Complaints Posterior headache pain History of Current Condition Pt states that she has had headaches since her teens. She was told they were migraines when she had her hysterectomy at age 28 years. The headaches did not get better after that . Pt states that her headaches go in cycles. When she gets them, she gets them constantly and then they stop. She does exercise at [employer]. She walks and runs. She changed her diet and she cut out flour. She tried cutting out caffeine and it did not make a change. She went to [facility] for pelvic floor therapy. The therapist did something for her neck and she got relief. Her PT encouraged her to return to her PCP and she got the referral to this clinic. Pt reports 8-9/10 posterior head and neck pain and 7/10 shoulder and 6/10 intrascapular pain. Pt reports that she gets light and noise sensitivity with headaches. She gets dizzy and nauseated. She has some migraine medicines that she takes when she can but she only gets so many. When she can go to bed, that makes a difference. She has tried ice packs. Pt has a BiPap and the doctor says her sleep is good. She tries to go to bed between 10- 1030 and wakes up about 0630. She has a puppy and now her sleeping schedule is off. Pt works part-time and she does retail. Pt starts out on her stomach and winds up on her back. She uses her BiPap in this position. Her mattress is firm. Pt goes to massage once a month. She wishes she could live there. She drinks a lot of water. She drinks 66 oz a day. She drinks 1.5 cup of caffeinated coffee in the morning and 1 cup of coffee in the afternoon. Right now, she is drinking 3 cups with the dog. Pt reports that occ, her eyes feel pressurized and she feels she is strangly. Pt states that her back pain is doing fine. PT-OP-C Subjective Start: 11/18/21 10:51 Freq: Status: Active Protocol: Document 02/28/22 09:50 [facility] (Rec: 02/28/22 10:36 [facility] [id number]) OP-PT Subjective Patient Comments Patient Comments Pt reports she was able to do ETF yesterday and did a run/ walk last week and it went okay and mm just were sore. Last couple days she had migrane and head not turning L . She is getting migrane again in last week. Today she didn' t wake up w/migraine. Over the weekend, she woke up with a migrane and had to take the dog to training PT-OP-J Posture/Palpation/Skin Start: 11/18/21 10:51 Freq: Status: Active Protocol: Document 02/28/22 09:50 [facility] (Rec: 02/28/22 10:36 [facility] [id number]) Posture Evaluation [facility] Postural Classification System Vertebral Compression Test 2 PT-OP-K Range of Motion Start: 11/18/21 10:51 Freq: Status: Active Protocol: Document 02/28/22 09:50 [facility] (Rec: 02/28/22 10:36 [facility] [id number]) Cervical Spine Range of Motion Cervical Spine Active Testing Position Standing Flexion 53 Extension 51 Rotation Left 50 Rotation Right 53 Lateral Flexion Left 36 Lateral Flexion Right 45 Comments tight w/flex; SB feels on R side w/both directions, PT-OP-M Strength Start: 11/18/21 10:51 Freq: Status: Active Protocol: Document 02/28/22 09:50 [facility] (Rec: 02/28/22 10:36 [facility] [id number]) Shoulder Strength Shoulder Manual Muscle Testing Right Flexion 5 Normal Extension 5 Normal Abduction (C5) 5 Normal External Rotation 5 Normal Internal Rotation 4+ Good+ Left Flexion 5 Normal Extension 5 Normal Abduction (C5) 5 Normal External Rotation 5 Normal Internal Rotation 5 Normal PT-OP-Q Treatments Start: 11/18/21 10:51 Freq: Status: Active Protocol: Document 02/28/22 09:50 [facility] (Rec: 02/28/22 14:26 [facility] [id number]) Manual Therapy Treatment Soft Tissue Mobilization cervical Body Location R>L LS, UT, Scalenes, SCM & SO Mobilization Type Rolling,Strumming,Sustained Pressure Intensity/Depth Moderate Comments seated and supine w/SB Joint Mobilizations cervical Comments C5-7 UAP R FM transverse C5 L FM ribs Joint rib 1 caudal FM thoracic Comments T-3 transverse L FM w/cover position Self-Care/Home Management Treatment Education Other Education edu to pt importance of self soft tissue work and to use motion when doing self massage . Edu to cont to work on posture when doing things like watching TV. edu for looking into massage therapy for helping w/maintence of neck pain and considering [place] d/t noting issues w/menopause( explained this can affect HAs) , edu for local DO for dry needling and MD that does medical acupuncture PT-OP-R Modalities Start: 12/27/21 11:27 Freq: Status: Active Protocol: Document 12/27/21 10:32 [facility] (Rec: 12/27/21 11:29 [facility] [id number]) Hot Pack/Cold Pack Treatment cervical cold gel pack Location cervical Patient Position Hooklying Treatment Duration (minutes) 10 Patient Tolerance Good Comments decreased pain and tension PT-OP-T Assessment and Plan Start: 11/18/21 10:51 Freq: Status: Active Protocol: Document 02/28/22 09:50 [facility] (Rec: 02/28/22 10:36 [facility] [id number]) Physical Therapy Assessment Goals activity Short Term Goal (STG) Pt will be able to sleep through the night without pain awaking her. 01/11-1-2x/a night currently 4/ 5 nights wakes up 02/28-only 2 nighs in past couple weeks disturbed STG Duration 03/31/22 Refrigerator Repair Technician Goal (LTG) Pt return to working out including running and EFT. 02/28-has started return LTG Duration 04/30/22 2 Refrigerator Repair Technician Goal (LTG) Pt will perform progressive HEP with I including pelvic realignment, breathing, self- massage, postural, and strengthening exercises to improve cervical ROM and pain by 01/19/22. 01/11-improved performance, still requires cues w/some exercises LTG Duration achieved 5/3 1 Senior Care Goal (LTG) Pt will report a 75% improvement in headaches and headache pain to improve quality of life by 01/19/22. 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 01/11: Pt reports she feels like she can function a lot better. At least 40% better and is taking less medication LTG Duration achieved 5/3 Assessment Summary Assessment Pt has made excellent progress at this time and is doing well overall with neck pain, HAs and ROM, but does still occasionally get migraines taht are very significant, but she is unsure what starts them. She is indep w/HEP and was given further stretching tools today. She was encouraged to look into insurance coverage for ND (for menopause possible link w/ migraines), massage therapy for maintence of dec neck tightness and consider DO/ medical acupuncture. At this time, pt can follow up as needed, otherwise will be DC in a couple months. Physical Therapy Plan Frequency and Duration Frequency of Treatment prn Duration of Treatment 2 months Plan of Care Start Date 02/28/22 Plan of Care End Date 04/30/22 Therapeutic Interventions Therapeutic Interventions Gait Training,Home Exercise Program,Joint Mobilizations, Manual Therapy,Neuromuscular Re-education,Patient/Caregiver Education,Self-Care/Home Management,Soft Tissue Mobilization,Taping, Therapeutic Activities, Therapeutic Exercises Modalities Cold Pack/Ice Massage,Hot Packs Next Visit Focus/Plan Next Note Type Treatment Note Next Visit Plan pt to work on HEP and consider seeing other specialists as needed. Pt can schedule as needed
--- NOTE | 2022-02-28 14:26 | PT.OPPOC ---
Physical, Occupational & Speech Therapy At [facility] Current Diagnoses Cervicogenic headache (02/28/22) Visit Care Team Role Provider Type Brennon Pike MD Attending Provider Physician Family Provider Primary Care Provider Referring Provider Specialty: Internal Medicine Address: [address] [place] [address], [address], [address] Email: [email or web address] Plan Of Care PT-OP-T Assessment and Plan Start: 11/18/21 10:51 Freq: Status: Active Protocol: Document 02/28/22 09:50 [facility] (Rec: 02/28/22 10:36 [facility] [id number]) Physical Therapy Assessment Goals activity Short Term Goal (STG) Pt will be able to sleep through the night without pain awaking her. 01/11-1-2x/a night currently 4/ 5 nights wakes up 02/28-only 2 nighs in past couple weeks disturbed STG Duration 03/31/22 Marzipan Molder Goal (LTG) Pt return to working out including running and EFT. 02/28-has started return LTG Duration 04/30/22 2 Assisted Goal (LTG) Pt will perform progressive HEP with I including pelvic realignment, breathing, self- massage, postural, and strengthening exercises to improve cervical ROM and pain by 01/19/22. 01/11-improved performance, still requires cues w/some exercises LTG Duration achieved 02/28 1 Marzipan Molder Goal (LTG) Pt will report a 75% improvement in headaches and headache pain to improve quality of life by 01/19/22. 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 01/11: Pt reports she feels like she can function a lot better. At least 40% better and is taking less medication LTG Duration achieved 3 Assessment Summary Assessment Pt has made excellent progress at this time and is doing well overall with neck pain, HAs and ROM, but does still occasionally get migraines taht are very significant, but she is unsure what starts them. She is indep w/HEP and was given further stretching tools today. She was encouraged to look into insurance coverage for ND (for menopause possible link w/ migraines), massage therapy for maintence of dec neck tightness and consider DO/ medical acupuncture. At this time, pt can follow up as needed, otherwise will be DC in a couple months. Physical Therapy Plan Frequency and Duration Frequency of Treatment prn Duration of Treatment 2 months Plan of Care Start Date 02/28/22 Plan of Care End Date 04/30/22 Therapeutic Interventions Therapeutic Interventions Gait Training,Home Exercise Program,Joint Mobilizations, Manual Therapy,Neuromuscular Re-education,Patient/Caregiver Education,Self-Care/Home Management,Soft Tissue Mobilization,Taping, Therapeutic Activities, Therapeutic Exercises Modalities Cold Pack/Ice Massage,Hot Packs Next Visit Focus/Plan Next Note Type Treatment Note Next Visit Plan pt to work on HEP and consider seeing other specialists as needed. Pt can schedule as needed Plan of Care Dates Plan of Care Start Date 02/28/22 Plan of Care End Date 04/30/22 Electronically Signed by: Aileen Ang, PT 02/28/22 [id number] If you are in agreement with this Plan of Care, please return a signed and dated copy. I have reviewed this Plan of Care and certify that the skilled therapy services above are required to meet the patient?s needs. Physician Signature Date Printed Name and Credentials Clinical Instructor Signature Printed Name and Credentials
--- NOTE | 2022-07-12 09:43 | PT.OPDS ---
Current Diagnoses Cervicogenic headache (02/28/22) Visit Care Team Role Provider Type Brennon Pike MD Attending Provider Physician Family Provider Primary Care Provider Referring Provider Specialty: Internal Medicine Address: [address] [place] [address], [address], [place], [address] Email: [email or web address] Visit Number Visit Number Discharge Summary PT-OP-B Current Condition Start: 11/18/21 10:51 Freq: Status: Active Protocol: Document 11/21/21 13:48 MB (Rec: 11/21/21 14:05 MB [id number]) Current Condition History of Current Condition Onset Date [age] years Current Complaints Posterior headache pain History of Current Condition Pt states that she has had headaches since her teens. She was told they were migraines when she had her hysterectomy at age 28 years. The headaches did not get better after that . Pt states that her headaches go in cycles. When she gets them, she gets them constantly and then they stop. She does exercise at [employer]. She walks and runs. She changed her diet and she cut out flour. She tried cutting out caffeine and it did not make a change. She went to [facility] for pelvic floor therapy. The therapist did something for her neck and she got relief. Her PT encouraged her to return to her PCP and she got the referral to this clinic. Pt reports 8-9/10 posterior head and neck pain and 7/10 shoulder and 6/10 intrascapular pain. Pt reports that she gets light and noise sensitivity with headaches. She gets dizzy and nauseated. She has some migraine medicines that she takes when she can but she only gets so many. When she can go to bed, that makes a difference. She has tried ice packs. Pt has a BiPap and the doctor says her sleep is good. She tries to go to bed between 10- 1030 and wakes up about 0630. She has a puppy and now her sleeping schedule is off. Pt works part-time and she does retail. Pt starts out on her stomach and winds up on her back. She uses her BiPap in this position. Her mattress is firm. Pt goes to massage once a month. She wishes she could live there. She drinks a lot of water. She drinks 66 oz a day. She drinks 1.5 cup of caffeinated coffee in the morning and 1 cup of coffee in the afternoon. Right now, she is drinking 3 cups with the dog. Pt reports that occ, her eyes feel pressurized and she feels she is strangly. Pt states that her back pain is doing fine. PT-OP-C Subjective Start: 11/18/21 10:51 Freq: Status: Active Protocol: Document 02/28/22 09:50 [facility] (Rec: 02/28/22 10:36 [facility] [id number]) OP-PT Subjective Patient Comments Patient Comments Pt reports she was able to do ETF yesterday and did a run/ walk last week and it went okay and mm just were sore. Last couple days she had migrane and head not turning L . She is getting migrane again in last week. Today she didn' t wake up w/migraine. Over the weekend, she woke up with a migrane and had to take the dog to training PT-OP-J Posture/Palpation/Skin Start: 11/18/21 10:51 Freq: Status: Active Protocol: Document 02/28/22 09:50 [facility] (Rec: 02/28/22 10:36 [facility] [id number]) Posture Evaluation Mary Postural Classification System Vertebral Compression Test 2 PT-OP-K Range of Motion Start: 11/18/21 10:51 Freq: Status: Active Protocol: Document 02/28/22 09:50 [facility] (Rec: 02/28/22 10:36 [facility] [id number]) Cervical Spine Range of Motion Cervical Spine Active Testing Position Standing Flexion 53 Extension 51 Rotation Left 50 Rotation Right 53 Lateral Flexion Left 36 Lateral Flexion Right 45 Comments tight w/flex; SB feels on R side w/both directions, PT-OP-M Strength Start: 11/18/21 10:51 Freq: Status: Active Protocol: Document 02/28/22 09:50 [facility] (Rec: 02/28/22 10:36 [facility] [id number]) Shoulder Strength Shoulder Manual Muscle Testing Right Flexion 5 Normal Extension 5 Normal Abduction (C5) 5 Normal External Rotation 5 Normal Internal Rotation 4+ Good+ Left Flexion 5 Normal Extension 5 Normal Abduction (C5) 5 Normal External Rotation 5 Normal Internal Rotation 5 Normal PT-OP-T Assessment and Plan Start: 11/18/21 10:51 Freq: Status: Active Protocol: Document 07/12/22 09:42 [facility] (Rec: 07/12/22 09:43 [facility] [id number]) Physical Therapy Assessment Goals activity Short Term Goal (STG) Pt will be able to sleep through the night without pain awaking her. 01/11-1-2x/a night currently 4/ 5 nights wakes up 02/28-only 2 nighs in past couple weeks disturbed STG Duration 03/31/22 Usp Goal (LTG) Pt return to working out including running and EFT. 02/28-has started return LTG Duration 04/30/22 2 Usp Goal (LTG) Pt will perform progressive HEP with I including pelvic realignment, breathing, self- massage, postural, and strengthening exercises to improve cervical ROM and pain by 01/19/22. 01/11-improved performance, still requires cues w/some exercises LTG Duration achieved 02/28 1 Usp Goal (LTG) Pt will report a 75% improvement in headaches and headache pain to improve quality of life by 01/19/22. 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 01/11: Pt reports she feels like she can function a lot better. At least 40% better and is taking less medication LTG Duration achieved 02/28 Assessment Summary Assessment Pt was left to do HEP and call if she needed to get in to use her last visits but has not called to schedule further in past 4 months. DC at this time d/t no longer attending PT. Pt had a significant reduction in pain w/PT and was working on self management. Physical Therapy Plan Discharge Physical Therapy Discharge Reasons No Longer Attending PT
== END 2022-07-14 09:39 ==
LOC: PHYS 09:45
PROVIDERS: Family Provider Student in an Organized Health Care Education/Training Program; PCP Student in an Organized Health Care Education/Training Program; Referring Provider Student in an Organized Health Care Education/Training Program; Visit Provider Student in an Organized Health Care Education/Training Program
DX: G44.86 Cervicogenic headache (principal)
CPT/HCPCS: 97010; 97110; 97112; 97140; 97161; 97530; 97535

== ENCOUNTER → 2022-09-27 11:31 | Outpatient (CLI) | payer OTHER, SELFPAY ==
--- NOTE | 2022-09-27 | DI.MG.S_ITS ---
BILATERAL DIGITAL SCREENING MAMMOGRAM 3D/2D WITH CAD: 09/27/2022 CLINICAL: Routine screening. Comparison is made to exams dated: 09/26/2021 mammogram, 09/21/2020 mammogram, and 09/18/2019 mammogram - [facility]. Both breasts are heterogeneously dense, which may obscure small masses (category c / 51-75% glandular tissue). Current study was also evaluated with a Computer Aided Detection (CAD) system. No significant masses, calcifications, or other findings are seen in either breast. There has been no significant interval change. IMPRESSION: NEGATIVE There is no mammographic evidence of malignancy. A 1 year screening mammogram is recommended. Based on the Tyrer Cuzick model (a risk assessment model) the patient's lifetime risk is 10.9% and her 10 year risk is 4.0%. According to the ACR, ACS, and NCCN guidelines, an annual breast MRI exam along with mammogram is recommended if the patient's lifetime risk is 20% or greater. This exam was interpreted at Station ID: [id number]. NOTE: For mammograms, a report in lay terms will be sent to the patient. Approximately 15% of breast malignancies will not be visualized mammographically. In the management of a palpable breast mass, a negative mammogram must not discourage biopsy of a clinically suspicious lesion. Electronically Signed By: Jefferson bradford/christiana:09/27/2022 15:44:35 copy to: VICKI WILSON letter sent: Normal Exam ACR BI-RADS Category 1: Negative 3341F
== END ==
PROVIDERS: Family Provider Student in an Organized Health Care Education/Training Program; PCP Student in an Organized Health Care Education/Training Program; Referring Provider Student in an Organized Health Care Education/Training Program; Visit Provider Student in an Organized Health Care Education/Training Program
DX: Z12.31 Encounter for screening mammogram for malignant neoplasm of breast (principal)
CPT/HCPCS: 77063; 77067

== ENCOUNTER → 2023-10-23 16:38 | Outpatient (CLI) | payer OTHER, SELFPAY ==
[2023-10-23 17:23] LABS: Add Manual Diff / Slide Review NO; Basophils Absolute Auto 0 /uL (0-100); Basophils Percent Auto 0.6 % (0-2); Eosinophils Absolute Auto 200 /uL (0-450); Eosinophils Percent Auto 3.6 % (2-4); Hematocrit 37.5 % (36-46); Hemoglobin 12.8 g/dL (12.0-16.0); Lymphocytes Absolute Auto 2000 /uL (1100-4500); Lymphocytes Percent Auto 31.1 % (25-40); Mean Corpuscular Hemoglobin 32.3 PG (26-34); Mean Corpuscular Volume 94.9 fL (80-100); Monocytes Absolute Auto 600 /uL (0-900); Neutrophils Absolute Auto 3500 /uL (1500-7000); Neutrophils Percent Auto 55.7 % (50-75); Platelet Count 289 X10^3/uL (150-400); Red Blood Cell Count 3.95 X10^6/uL (4.0-5.2); Red Cell Distribution Width 12.9 % (11.6-14.8); White Blood Cell Count 6.3 X10^3/uL (4.5-11.0)
[2023-10-23 17:28] LABS: Alanine Aminotransferase 31 IU/L (<35); Albumin 4.1 g/dL (3.5-5.0); Albumin Globulin Ratio 1.2 (1.0-2.8); Alkaline Phosphatase 74 U/L (38-126); Aspartate Aminotransferase 29 IU/L (14-36); BUN Creatinine Ratio 18.8 (6-22); Bilirubin Total 0.4 mg/dL (0.2-1.3); Blood Urea Nitrogen 13 mg/dL (7-17); Calcium 9.5 mg/dL (8.4-10.2); Carbon Dioxide 30 mmol/L (22-32); Chloride 101 mmol/L (98-107); Estimated Glomerular Filt Rate > 60 mL/min (>60); Globulin 3.3 g/dL (1.7-4.1); Glucose 84 mg/dL (70-100); HEMOLYSIS < 15 (0-50); Potassium 4.1 mmol/L (3.4-5.1); Sodium 137 mmol/L (137-145); Total Protein 7.4 g/dL (6.3-8.2)
[2023-10-23 18:50] LABS: TSH w/ Reflex to FT4 0.03 uIU/mL (0.47-4.68)
[2023-10-23 20:05] LABS: Free T4, Direct Thyroxine 1.38 ng/dL (0.78-2.19)
== END ==
PROVIDERS: Family Provider Student in an Organized Health Care Education/Training Program; PCP Physician Assistant; Referring Provider Physician Assistant; Visit Provider Physician Assistant
DX: G43.109 Migraine with aura, not intractable, without status migrainosus (principal)
CPT/HCPCS: 36415; 80053; 84439; 84443; 85025

== ENCOUNTER → 2023-10-25 17:18 | Outpatient (CLI) | payer OTHER, SELFPAY ==
--- NOTE | 2023-10-25 | DI.MG.S_ITS ---
BILATERAL DIGITAL SCREENING MAMMOGRAM 3D/2D WITH CAD: 10/25/2023 CLINICAL: Routine screening. Comparison is made to exams dated: 10/25/2023 mammogram, 09/27/2022 mammogram, and 09/26/2021 mammogram - [facility]. Both breasts are heterogeneously dense, which may obscure small masses (category c / 51-75% glandular tissue). Current study was also evaluated with a Computer Aided Detection (CAD) system. There is an asymmetry in the right breast posterior depth central to the nipple seen on the mediolateral oblique view only. This is more prominent. No other significant masses, calcifications, or other findings are seen in either breast. IMPRESSION: INCOMPLETE: NEEDS ADDITIONAL IMAGING EVALUATION The asymmetry in the right breast is indeterminate. Additional views with possible ultrasound are recommended. Based on the Tyrer Cuzick model (a risk assessment model) the patient's lifetime risk is 10.7% and her 10 year risk is 4.2%. According to the ACR, ACS, and NCCN guidelines, an annual breast MRI exam along with mammogram is recommended if the patient's lifetime risk is 20% or greater. This exam was interpreted at Station ID: [id number]. NOTE: For mammograms, a report in lay terms will be sent to the patient. Approximately 15% of breast malignancies will not be visualized mammographically. In the management of a palpable breast mass, a negative mammogram must not discourage biopsy of a clinically suspicious lesion. Electronically Signed By: Fran Gibbs M.D. lc/:10/26/2023 12:33:31 copy to: VICKI WILSON letter sent: Additional Imaging Needed ACR BI-RADS Category 0: Incomplete [id number]
== END ==
PROVIDERS: Family Provider Student in an Organized Health Care Education/Training Program; PCP Student in an Organized Health Care Education/Training Program; Referring Provider Obstetrics & Gynecology; Visit Provider Obstetrics & Gynecology
DX: Z12.31 Encounter for screening mammogram for malignant neoplasm of breast (principal)
CPT/HCPCS: 77063; 77067

== ENCOUNTER → 2023-11-06 13:26 | Outpatient (CLI) | payer OTHER, SELFPAY ==
--- NOTE | 2023-11-06 13:28 | DI.MG.S_ITS ---
UNILATERAL RIGHT DIGITAL DIAGNOSTIC MAMMOGRAM 3D/2D WITH ADDITIONAL VIEWS: 11/06/2023 CLINICAL: Additional evaluation requested from prior study. Comparison is made to exams dated: 10/25/2023 mammogram, 09/27/2022 mammogram, 09/26/2021 mammogram, and 09/21/2020 mammogram - [facility]. The right breast is heterogeneously dense, which may obscure small masses (category c / 51-75% glandular tissue). The asymmetry in the right breast posterior depth central to the nipple seen on the mediolateral oblique view only is no longer seen. No other significant masses or calcifications are seen in the breast. IMPRESSION: NEGATIVE There is no mammographic evidence of malignancy. Return to annual mammogram screening schedule is recommended. Based on the Tyrer Cuzick model (a risk assessment model) the patient's lifetime risk is 10.7% and her 10 year risk is 4.2%. According to the ACR, ACS, and NCCN guidelines, an annual breast MRI exam along with mammogram is recommended if the patient's lifetime risk is 20% or greater. This exam was interpreted at Station ID: [id number]. NOTE: For mammograms, a report in lay terms will be sent to the patient. Approximately 15% of breast malignancies will not be visualized mammographically. In the management of a palpable breast mass, a negative mammogram must not discourage biopsy of a clinically suspicious lesion. Electronically Signed By: Jefferson bradford/christiana:11/06/2023 16:59:06 copy to: VICKI WILSON letter sent: Normal Exam ACR BI-RADS Category 1: Negative 3341F
== END ==
LOC: MAMMO 13:26
PROVIDERS: Family Provider Student in an Organized Health Care Education/Training Program; PCP Physician Assistant; Referring Provider Obstetrics & Gynecology; Visit Provider Obstetrics & Gynecology
DX: R92.8 Other abnormal and inconclusive findings on diagnostic imaging of breast (principal); R92.331 Mammographic heterogeneous density, right breast
CPT/HCPCS: 77065; G0279

== ENCOUNTER → 2023-12-19 11:04 | Outpatient (CLI) | payer OTHER, SELFPAY ==
[2023-12-19 12:15] LABS: TSH w/ Reflex to FT4 0.08 uIU/mL (0.47-4.68)
[2023-12-19 15:35] LABS: Free T4, Direct Thyroxine 1.42 ng/dL (0.78-2.19)
== END ==
PROVIDERS: Family Provider Student in an Organized Health Care Education/Training Program; Referring Provider Physician Assistant; Visit Provider Physician Assistant
DX: E03.9 Hypothyroidism, unspecified (principal)
CPT/HCPCS: 36415; 84439; 84443

== ENCOUNTER → 2024-05-26 07:04 | Outpatient (CLI) | payer OTHER, SELFPAY ==
[2024-05-26 08:12] LABS: Cholesterol 212 mg/dL (140-199); HDL Cholesterol 75 mg/dL (40-60); LDL Cholesterol Calculated 121 mg/dL (<100); Triglycerides 80 mg/dL (35-150)
[2024-05-26 08:17] LABS: High Sensitivity CRP - Cardiac 0.5 mg/L (1.0-3.0)
[2024-05-26 08:32] LABS: Free T3, Triiodothyronine Free 2.99 pg/mL (2.77-5.27)
[2024-05-26 08:46] LABS: TSH w/ Reflex to FT4 0.26 uIU/mL (0.47-4.68)
[2024-05-26 09:11] LABS: Free T4, Direct Thyroxine 0.98 ng/dL (0.78-2.19)
== END ==
PROVIDERS: Family Provider Student in an Organized Health Care Education/Training Program; PCP Family Medicine; Referring Provider Family Medicine; Visit Provider Family Medicine
DX: E03.9 Hypothyroidism, unspecified (principal); R53.83 Other fatigue; E78.5 Hyperlipidemia, unspecified
CPT/HCPCS: 36415; 80061; 84439; 84443; 84481; 86140

== ENCOUNTER → 2024-11-12 15:43 | Outpatient (CLI) | payer OTHER, SELFPAY ==
--- NOTE | 2024-11-12 15:45 | DI.MG.S_ITS ---
BILATERAL DIGITAL SCREENING MAMMOGRAM 3D/2D WITH CAD: 11/12/2024 CLINICAL: Routine screening. Comparison is made to exams dated: 10/25/2023 mammogram, 09/27/2022 mammogram, 09/26/2021 mammogram, and 11/06/2023 mammogram - [facility]. The breasts are heterogeneously dense, which may obscure small masses (category c / 51-75% glandular tissue). Current study was also evaluated with a Computer Aided Detection (CAD) system. No significant masses, calcifications, or other findings are seen in either breast. There has been no significant interval change. IMPRESSION: NEGATIVE There is no mammographic evidence of malignancy. A 1 year screening mammogram is recommended. Based on the Tyrer Cuzick model (a risk assessment model) the patient's lifetime risk is 10.5% and her 10 year risk is 4.2%. According to the ACR, ACS, and NCCN guidelines, an annual breast MRI exam along with mammogram is recommended if the patient's lifetime risk is 20% or greater. This exam was interpreted at Station ID: [id number]. NOTE: For mammograms, a report in lay terms will be sent to the patient. Approximately 15% of breast malignancies will not be visualized mammographically. In the management of a palpable breast mass, a negative mammogram must not discourage biopsy of a clinically suspicious lesion. Electronically Signed By: Catarino kendall/christiana:11/13/2024 11:34:01 copy to: VICKI WILSON letter sent: Normal Exam ACR BI-RADS Category 1: Negative
[2024-11-12 17:00] LABS: Add Manual Diff / Slide Review NO; Basophils Absolute Auto 0 /uL (0-100); Basophils Percent Auto 0.3 % (0-2); Eosinophils Absolute Auto 100 /uL (0-450); Hematocrit 39.6 % (36-46); Lymphocytes Absolute Auto 1800 /uL (1100-4500); Lymphocytes Percent Auto 21.5 % (25-40); Mean Corpuscular HGB Conc 32.8 % (30-36); Mean Corpuscular Hemoglobin 31.7 PG (26-34); Mean Corpuscular Volume 96.9 fL (80-100); Monocytes Absolute Auto 500 /uL (0-900); Monocytes Percent Auto 5.9 % (3-14); Neutrophils Absolute Auto 6000 /uL (1500-7000); Neutrophils Percent Auto 71.3 % (50-75); Platelet Count 315 X10^3/uL (150-400); Red Blood Cell Count 4.09 X10^6/uL (4.0-5.2); Red Cell Distribution Width 13.7 % (11.6-14.8); White Blood Cell Count 8.5 X10^3/uL (4.5-11.0)
[2024-11-12 17:56] LABS: Ferritin 112 ng/mL (11-264)
[2024-11-14 16:08] LABS: Dehydroepiandrosterone Sulfate 51.9 ug/dL (29.4-220.5)
== END ==
LOC: MAMMO 15:44
PROVIDERS: Family Provider Student in an Organized Health Care Education/Training Program; PCP Family Medicine; Referring Provider Family Medicine; Visit Provider Family Medicine
DX: Z12.31 Encounter for screening mammogram for malignant neoplasm of breast (principal); R92.333 Mammographic heterogeneous density, bilateral breasts; R53.83 Other fatigue
CPT/HCPCS: 36415; 77063; 77067; 82627; 82728; 84402; 84403; 85025

== ENCOUNTER → 2025-05-06 07:11 | Outpatient (CLI) | payer OTHER, SELFPAY ==
[2025-05-06 08:48] LABS: Alanine Aminotransferase 32 IU/L (<35); Albumin 4.1 g/dL (3.5-5.0); Albumin Globulin Ratio 1.5 (1.0-2.8); Alkaline Phosphatase 77 U/L (38-126); Blood Urea Nitrogen 12 mg/dL (7-17); Calcium 9.3 mg/dL (8.4-10.2); Carbon Dioxide 30 mmol/L (22-32); Chloride 105 mmol/L (98-107); Cholesterol 191 mg/dL (140-199); Estimated Glomerular Filt Rate > 60 mL/min (>60); Globulin 2.7 g/dL (1.7-4.1); Glucose 93 mg/dL (70-99); HDL Cholesterol 66 mg/dL (40-60); HEMOLYSIS < 15 (0-50); Potassium 4.7 mmol/L (3.4-5.1); Sodium 139 mmol/L (137-145); Total Protein 6.8 g/dL (6.3-8.2); Triglycerides 79 mg/dL (35-150)
[2025-05-06 09:05] LABS: Free T3, Triiodothyronine Free 3.03 pg/mL (2.77-5.27)
[2025-05-06 09:19] LABS: TSH w/ Reflex to FT4 0.73 uIU/mL (0.47-4.68)
[2025-05-07 00:11] LABS: CRP, High Sensitivity 0.51 mg/L (0.00-3.00)
== END ==
PROVIDERS: PCP Family Medicine; Referring Provider Family Medicine; Visit Provider Family Medicine
DX: Z00.00 Encounter for general adult medical examination without abnormal findings (principal); E89.40 Asymptomatic postprocedural ovarian failure; Z79.890 Hormone replacement therapy; F33.41 Major depressive disorder, recurrent, in partial remission; E78.00 Pure hypercholesterolemia, unspecified; E03.9 Hypothyroidism, unspecified
CPT/HCPCS: 36415; 80053; 80061; 84443; 84481; 86140